=== PATIENT | male | born 1970 | race Caucasian/White ===

== ENCOUNTER 2020-09-16 14:49 | Emergency (ER) | payer OTHER, SELFPAY ==
--- NOTE | 2020-09-16 | ECG_ITS ---
Test Reason : CP Blood Pressure : / mmHG Vent. Rate : 084 BPM Atrial Rate : 084 BPM P-R Int : 150 ms QRS Dur : 084 ms QT Int : 326 ms P-R-T Axes : 071 060 059 degrees QTc Int : 385 ms Normal sinus rhythm Normal ECG When compared with ECG of 12-MAY-2002 00:25, No significant change was found Referred By: Tasia Martinez Electronically Signed By:Willis Nguyen
--- NOTE | 2020-09-16 15:05 | XR_ITS ---
EXAMINATION: XR CHEST CLINICAL INFORMATION: Chest pain COMPARISON: None TECHNIQUE: Frontal view of the chest was obtained. FINDINGS: Multiple cardiac leads and wires overlie the chest. The cardiomediastinal silhouette is within normal limits for technique. The lungs are symmetrically well expanded. The lungs are clear. No evidence of pleural effusions or pneumothorax. XR/XR chest 1V IMPRESSION: No acute pulmonary process.
[2020-09-16 15:17] VITALS: BP 138/90; PULSE 85; RESP 12; TEMP 36.5; O2SAT 96; BMI 31.6
[2020-09-16 15:22] LABS: MANUAL DIFF FLAG NO
[2020-09-16 15:23] LABS: Basophils Absolute Auto 0.1 X10*3/uL (0.0-0.2); Basophils Percent Auto 0.5 % (0-2); Eosinophils Absolute Auto 0.3 X10*3/uL (0.0-0.4); Eosinophils Percent Auto 2.3 % (0-4); Hematocrit 44.9 % (42-52); Hemoglobin 15.1 g/dl (14.0-18.0); Imm Gran Pct Auto 0.9 % (0.0-0.4); Lymphocytes Absolute Auto 1.9 X10*3/uL (1.2-4.9); Lymphocytes Percent Auto 16.7 % (20-40); Mean Corpuscular HGB Conc 33.6 g/dl (31.0-36.0); Mean Corpuscular Hemoglobin 33.4 pg (27.0-33.0); Mean Corpuscular Volume 99.3 fL (80-98); Mean Platelet Volume 10.1 fL (9.4-12.4); Monocytes Percent Auto 9.1 % (2-11); Neutrophils Absolute Auto 7.9 X10*3/uL (2.0-8.3); Neutrophils Percent Auto 70.5 % (45-73); Platelet Count 271 X10*3/uL (160-400); Red Blood Count 4.52 X10*6/uL (4.60-5.80); Red Cell Distribution Width 11.5 % (11.0-16.0); White Blood Count 11.3 X10*3/uL (4.8-10.8)
[2020-09-16] MEDS: 0.9 % Sodium Chloride 1,000 ML 999 ML IVCONT (15:23)
[2020-09-16 15:33] LABS: D Dimer < 200 NG/ML
[2020-09-16 15:36] LABS: COVID-19 Test Negative (Negative)
[2020-09-16 15:51] LABS: Troponin-I High Sensitivity < 3.5 ng/L (<3.5-35.0)
[2020-09-16 15:52] LABS: Alanine Aminotransferase 25 U/L (0-40); Albumin Level 4.5 g/dL (3.5-5.0); Alkaline Phosphatase 84 U/L (39-117); Anion Gap 16 (12-20); Aspartate Amino Transferase 32 U/L (5-37); Bilirubin Direct 0.2 mg/dL (0.0-0.5); Bilirubin Total 0.5 mg/dL (0.0-1.0); Blood Urea Nitrogen 13 mg/dL (9-16); Calcium 9.1 mg/dL (8.4-10.2); Carbon Dioxide 23 mmol/L (22-29); Chloride 106 mmol/L (96-108); Creatinine Clr Calc Pharmacy 144.3; Estimated Glomerular Filt Rate > 60; Glucose Random 109 mg/dL (60-115); Lipase 38 U/L (8-78); Potassium 4.2 mmol/L (3.3-5.1); Sodium 141 mmol/L (135-145)
[2020-09-16 16:23] VITALS: BP 128/78; PULSE 90; RESP 22; TEMP 37.1; O2SAT 95
--- NOTE | 2020-09-16 16:39 | ED_ITS ---
HPI - Chest Pain General Chief Complaint: Chest Pain Stated Complaint: chest pain Time Seen by Provider: 09/16/20 14:58 Source: patient Mode of arrival: ambulatory Limitations: no limitations History of Present Illness HPI narrative: 50-year-old male otherwise healthy came in with right-sided chest pain, pain started 8 hours ago when he woke up from sleep, patient is localized to the right side of the chest, no radiation, no other associated symptoms in particular no shortness of breath, no nausea, no vomiting. Pain has been constant since this morning, moderate severity (4/10). Nothing makes the pain worse, nothing makes the pain better. No trauma to the chest. Patient had similar chest pain in the past when he was diagnosed with pericarditis. Related Data Allergies Allergy/AdvReac Type Severity Reaction Status Date / Time No Known Allergies Allergy Verified 09/16/20 15:05 Review of Systems Review of Systems: All other systems are reviewed and are negative Constitutional: Reports as per HPI and Reports no additional constitutional complaints Eyes: Reports as per HPI and Reports no additional eye complaints Reports system reviewed and no additional complaints, except as documented Cardiovascular: Reports as per HPI and Reports no additional cardiovascular complaints Respiratory: Reports as per HPI and Reports no additional respiratory complaints Gastrointestinal: Reports as per HPI and Reports no additional gastrointestinal complaints Genitourinary: Reports no additional female genitourinary complaints Musculoskeletal: Reports no additional musculoskeletal complaints Skin/Breast: Reports system reviewed and no additional complaints, except as docu Psychiatric: Reports no additional psychiatric complaints Endocrine: Reports no additional endocrine complaints Hematologic/Lymphatic: Reports no additional hematologic/lymphatic complaints Allergic/Immunologic: Reports no additional allergic/immunologic complaints Reports system reviewed and no additional complaints, except as documented and Reports Abnormal speech present [facility] Social History Social History Advance Directives: No Advance Directives Information Provided: Yes Physical Exam Vital Signs: Vital Signs: Last Vital Signs Temp 98.7 F 09/16/20 16:23 Pulse 90 09/16/20 16:23 Resp 22 H 09/16/20 16:23 BP 128/78 09/16/20 16:23 Pulse Ox 95 09/16/20 16:23 Body Mass Index 31.6 Vital signs have been reviewed as normal and appeared to be correct. Blood pressure normal. Heart rate normal. Respiration rate normal. Temperature normal. Oxygen saturation normal. Appearance: Alert. Oriented X3. No acute distress. Head: Normal external exam. Normocephalic. Atraumatic. No Watson signs noted. No raccoon eyes noted Eyes: PERRLA. EOMI. Conjunctiva and sclera normal. Eyelids normal. ENT: EAC normal. TM's Normal. Pharynx normal. Uvula midline. Moist mucous membranes. No trismus noted. No drooling noted. No muffled voice noted. Neck: Normal inspection. Neck supple. FROM. No adenopathy. Thyroid Normal. No meningeal signs. No neck mass noted. CVS: Normal heart rate and rhythm. Heart sound normal. No murmurs noted. Pulses normal throughout. Respiratory: No respiratory distress. Painless inspiration. Breath sounds normal. No wheezes/rales/rhonchi noted. Chest nontender. No accessory muscle usage noted or decreased air movement noted. Abdomen: Soft and nontender. Bowel sounds normal in all 4 quadrants. No distention noted. No organomegaly noted. No visible injury noted. Back: No CVA tenderness. Full range of motion noted. Skin: Skin warm and dry. Normal skin color. Normal skin turgor. No rashes/lesions/lacerations noted. Extremities: No lower extremity edema. Extremities exhibit normal range of motion. Extremities nontender. Neuro: Oriented X 3. No motor deficit. No sensory deficit. Reflexes normal. Course Course Course Narrative: Assessment and plan. 50-year-old male otherwise healthy presented with 8 hours of constant right- sided chest pain, physical exam, labs, EKG is inconsistent with cardiopulmonary origin of the chest pain, EKG is not suggestive for pericarditis. Slight leukocytosis with no clear underlying etiology. Patient's HEART score is 1. As discussed with the patient who appear hemodynamically stable to discharge ho me take NSAIDs every 6 hours if needed for pain. MDM - Chest Pain Lab Data Attestation: I reviewed the patient's lab results. Result diagrams: 09/16/20 15:14 09/16/20 15:14 Labs: Lab Results 09/16/20 09/16/20 09/16/20 Range/Units 15:14 15:14 15:14 WBC 11.3 H (4.8-10.8) X10*3/uL RBC 4.52 L (4.60-5.80) X10*6/uL Hgb 15.1 (14.0-18.0) g/dl Hct 44.9 (42-52) % MCV 99.3 H (80-98) fL MCH 33.4 H (27.0-33.0) pg MCHC 33.6 (31.0-36.0) g/dl RDW 11.5 (11.0-16.0) % Plt Count 271 (160-400) X10*3/uL MPV 10.1 (9.4-12.4) fL Immature Gran % (Auto) 0.9 H (0.0-0.4) % Neut % (Auto) 70.5 (45-73) % Lymph % (Auto) 16.7 L (20-40) % Young % (Auto) 9.1 (2-11) % Eos % (Auto) 2.3 (0-4) % Baso % (Auto) 0.5 (0-2) % Lymph # (Auto) 1.9 (1.2-4.9) X10*3/uL Young # (Auto) 1.0 (0.1-1.2) X10*3/uL Eos # (Auto) 0.3 (0.0-0.4) X10*3/uL Baso # (Auto) 0.1 (0.0-0.2) X10*3/uL Abs Immat Gran (auto) 0.10 H (0.00-0.03) X10*3/uL Absolute Neuts (auto) 7.9 (2.0-8.3) X10*3/uL Absolute Nucleated RBC 0.000 (0.0-0.012) X10*3/uL Nucleated RBC % (auto) 0.0 (0.0-0.2) /100WBC D-Dimer < 200 NG/ML Sodium 141 (135-145) mmol/L Potassium 4.2 (3.3-5.1) mmol/L Chloride 106 (96-108) mmol/L Carbon Dioxide 23 (22-29) mmol/L Anion Gap 16 (12-20) BUN 13 (9-16) mg/dL Creatinine 0.81 (0.5-1.4) mg/dL Estim Creat Clear Calc 144.3 Estimated GFR > 60 Random Glucose 109 (60-115) mg/dL Calcium 9.1 (8.4-10.2) mg/dL Total Bilirubin 0.5 (0.0-1.0) mg/dL Direct Bilirubin 0.2 (0.0-0.5) mg/dL AST 32 (5-37) U/L ALT 25 (0-40) U/L Alkaline Phosphatase 84 (39-117) U/L Troponin I High Sens (<3.5-35.0) ng/L Total Protein 7.0 (6.5-8.0) g/dL Albumin 4.5 (3.5-5.0) g/dL Lipase 38 (8-78) U/L COVID-19 (JAKOB) (Negative) COVID-19 Clin Com 09/16/20 09/16/20 Range/Units 15:14 15:14 WBC (4.8-10.8) X10*3/uL RBC (4.60-5.80) X10*6/uL Hgb (14.0-18.0) g/dl Hct (42-52) % MCV (80-98) fL MCH (27.0-33.0) pg MCHC (31.0-36.0) g/dl RDW (11.0-16.0) % Plt Count (160-400) X10*3/uL MPV (9.4-12.4) fL Immature Gran % (Auto) (0.0-0.4) % Neut % (Auto) (45-73) % Lymph % (Auto) (20-40) % Young % (Auto) (2-11) % Eos % (Auto) (0-4) % Baso % (Auto) (0-2) % Lymph # (Auto) (1.2-4.9) X10*3/uL Young # (Auto) (0.1-1.2) X10*3/uL Eos # (Auto) (0.0-0.4) X10*3/uL Baso # (Auto) (0.0-0.2) X10*3/uL Abs Immat Gran (auto) (0.00-0.03) X10*3/uL Absolute Neuts (auto) (2.0-8.3) X10*3/uL Absolute Nucleated RBC (0.0-0.012) X10*3/uL Nucleated RBC % (auto) (0.0-0.2) /100WBC D-Dimer NG/ML Sodium (135-145) mmol/L Potassium (3.3-5.1) mmol/L Chloride (96-108) mmol/L Carbon Dioxide (22-29) mmol/L Anion Gap (12-20) BUN (9-16) mg/dL Creatinine (0.5-1.4) mg/dL Estim Creat Clear Calc Estimated GFR Random Glucose (60-115) mg/dL Calcium (8.4-10.2) mg/dL Total Bilirubin (0.0-1.0) mg/dL Direct Bilirubin (0.0-0.5) mg/dL AST (5-37) U/L ALT (0-40) U/L Alkaline Phosphatase (39-117) U/L Troponin I High Sens < 3.5 (<3.5-35.0) ng/L Total Protein (6.5-8.0) g/dL Albumin (3.5-5.0) g/dL Lipase (8-78) U/L COVID-19 (JAKOB) Negative (Negative) COVID-19 Clin Com See Note Imaging Data Chest x-ray: Radiologist's impression: No acute pathology. ECG Data ECG #1: Interpretation: Normal sinus rhythm at 84 beats per minute, normal axis deviation, normal intervals, no ST-T changes.
== END 2020-09-16 17:25 | disposition home or self-care (01) ==
PROVIDERS: Emergency Provider Emergency Medicine; PCP Internal Medicine
DX: R07.9 Chest pain, unspecified (principal); Z20.822 Contact with and (suspected) exposure to COVID-19
CPT/HCPCS: 36415; 71045; 80048; 80076; 83690; 84484; 85025; 85379; 87635; 93005; 96360; 99283; 99284

== ENCOUNTER 2020-11-04 18:47 | Emergency (ER) | payer OTHER, SELFPAY ==
[2020-11-04 19:19] VITALS: BP 131/84; PULSE 112; PULSE 116; RESP 20; TEMP 37.1; O2SAT 94; O2SAT 98; BMI 31.6
--- NOTE | 2020-11-04 19:55 | PC.NURSE ---
pt brought to the bathroom to change of address clerk with security and with pct. pt is cooperative, steady gait. urine being collected at this time as well.
[2020-11-04 20:35] VITALS: BP 115/68; PULSE 104; RESP 20; TEMP 36.8; O2SAT 94
--- NOTE | 2020-11-04 21:26 | MHC.RECOVSUP ---
Recovery support o Current location: [address] o Identified substance use concern: Psychiatric Alcohol <del>-</del> <del>Overdose</del> <del>-</del> <del>Withdrawal</del> <del>-</del> <del>Seeking</del> <del>ATS</del> <del>(detox)</del> - Support ? Intervention: <del>o</del> <del>ATS</del> <del>bed</del> <del>search</del> <del>started/completed/in</del> <del>process</del> <del>o</del> <del>MAT</del> <del>started</del> <del>or</del> <del>to</del> <del>be</del> <del>started</del> o Community resources provided o Harm reduction discussion ? Plan: <del>o</del> <del>Referral</del> <del>to</del> <del>CCC</del> <del>o</del> <del>Bed</del> <del>search</del> <del>in</del> <del>progress</del> <del>to</del> <del>o</del> <del>Follow</del> <del>up</del> <del>tomorrow</del> o Patient awaiting crisis evaluation o Patient to follow up with [facility] after discharge ? Additional information: I was able to engage with pt and pt stated that he is not on MAT and does not have a hx of substance use. pt states that there was a misunderstanding and that he has no intention on hurting himself. I briefly spoke to him about recovery and also left him with some resources on Vivitrol, CCC, AA, and Recovery Coaching.
[2020-11-04 21:32] LABS: Ethanol 83 mg/dL
[2020-11-04 21:37] LABS: Amphetamine Screen Urine Not Detected (Not Detect); Barbiturates, Urine Not Detected (Not Detect); Benzodiazepines Screen Urine Not Detected (Not Detect); Cannabinoid Screen Urine Not Detected (Not Detect); Cocaine Screen Urine Not Detected (Not Detect); Opiate Screen Urine Not Detected (Not Detect); Phencyclidine Screen Urine Not Detected (Not Detect)
[2020-11-04 22:00] VITALS: BP 123/77; PULSE 102; RESP 18; TEMP 36.8; O2SAT 93
--- NOTE | 2020-11-04 22:19 | PC.NURSE ---
PT BEING SEEN BY THE CARE TEAM AT THIS TIME. PT IS CALM AND COOPERATIVE. SITTER AT BEDSIDE.
--- NOTE | 2020-11-04 22:21 | MHC.CARE ---
Pt arrived to ED via ambulance secondary to making a suicidal statement to a romantic partner on the phone while intoxicated. Pt's BAL was 81 shortly after arrival, and ED provider requested that CARE team speak with pt when able. Pt adamantly insisted that he had been making a joke about how he could take a bunch of pills however that he would never do such a thing, and that the woman he was on the phone with was someone that he had been out with two times and was merely acquainted with. Pt reported that he has a gigantic amount of stress in his life, including financial/IRS related issues, working several jobs, and having been twice. Pt reported that he has a son that stays with him every other weekend. Pt has a therapist and psychiatrist that he works with regularly and finds that they are helpful. Pt denied experiencing any thoughts of or suicide, and denied history of such. Pt denied history of self harm and aggression toward others. This hand sign writer spoke with ED provider re: recommendation that pt return home with plan to follow up with his outpatient behavioral health providers. Pt reported that he has no way of getting home from the hospital. This hand sign writer will attempt to order a Lyft for transport home following discharge.
--- NOTE | 2020-11-04 22:29 | ED_ITS ---
HPI - Psych General Chief Complaint: Psychiatric Symptoms Stated Complaint: crisis si Time Seen by Provider: 11/04/20 22:29 Source: patient Mode of arrival: ambulatory Limitations: no limitations History of Present Illness HPI Narrative: Drinking alcohol and feeling stressed due to divorce him bills and was talking to a new female friend on the phone who he has been intermittent with and stated while he was drinking that in a joking manner he stated would like to take some pills to get over his problems. States he has only been intermittent with his female twice and she does not really know him and this is his usual joking manner. States this was a total misunderstanding over the phone and there is no thoughts of SI. Does admit to drinking alcohol and states does not regularly drink and had several red bull with vodka. Over the course of couple hours see our prior to arrival. MD complaint: alcohol abuse Onset (ago): hour(s) History of same: No Relieving factors: none Exacerbating factors: none Treatments prior to arrival: none Related Data Allergies Allergy/AdvReac Type Severity Reaction Status Date / Time No Known Allergies Allergy Verified 09/16/20 15:05 Review of Systems Review of Systems: Constitutional: No Weight loss, No Fever, No Chills, No Night Sweats, No Fatigue, No Malaise ENT/Mouth: No Hearing loss, No Ear Pain, No Nasal Congestion, No Sinus Pain, No Hoarseness, No sore throat, No Rhinorrhea, No Swallowing Difficulty Eyes: No Eye Pain, No Swelling, No Redness, No Foreign Body, No Discharge, No Vision Changes Cardiovascular: No Chest Pain, No SOB, No Dyspnea on Exertion, No Orthopnea, No Edema, No Palpitations Respiratory: No Cough, No Sputum, No Wheezing, No Dyspnea Gastrointestinal: No Nausea, No Vomiting, No Diarrhea, No Constipation, No abdominal Pain, No Hematochezia, No Melena Genitourinary: No Dysuria, No Urinary Frequency, No Hematuria, No Urinary Incontinence, No Urgency, No Flank Pain, No Urinary Flow Changes, No Hesitancy Musculoskeletal: No joint pain, No Myalgias, No Joint Swelling Skin: No Skin Lesions, No rash Neuro: No Weakness, No Numbness, No Paresthesias, No Loss of Consciousness, No Dizziness, No Headache Psych: No Anxiety/Panic, No Depression, No SI/HI/AH/VH Heme/Lymph: No Bruising, No Bleeding,No Lymphadenopathy Endocrine: No Polyuria, No Polydipsia, No Temperature Intolerance Yes all other systems are reviewed and are negative [facility] Social History Social History Advance Directives: No Physical Exam Vital Signs: Vital Signs: Last Vital Signs Temp 98.2 F 11/04/20 20:35 Pulse 104 H 11/04/20 20:35 Resp 20 11/04/20 20:35 BP 115/68 11/04/20 20:35 Pulse Ox 94 11/04/20 20:35 Body Mass Index 31.6 Reviewed Const: General: cooperative, healthy appearing and intoxicated appearing; No acute distress Nutritional Appearance: average body habitus Orientation/consciousness: patient oriented x3 HENMT: Head: Yes normal to inspection Ears: hearing grossly normal bilaterally Eyes: General: appearance normal, both eyes and all related structures Visual Niño: normal visual niño by confrontation Neck: Neck: Yes normal visual inspection, No positive Brudzinski's sign, No positive Kernig's sign and No tender Thyroid: Thyroid normal Chest: Chest palpation & inspection: normal inspection of the chest Resp: Effort & Inspection: normal respiratory effort Cardio: Jugular venous distension: no JVD Rhythm: regular rhythm Heart sounds: S1 normal heart sound present and S2 normal heart sound present GI: Inspection: Yes normal to inspection Palpation (GI): Soft to palpation Percussion: Yes normal to percussion Auscultation: normal bowel sounds : General: Yes no CVA tenderness Back/Spine/Pelvis: Back: no CVA tenderness Skin: General skin exam: no rashes or lesions noted Neuro: General: patient oriented x3 Extrem: General: Yes normal to inspection Psych: Appearance: grossly normal Course Reevaluation(s) Reevaluation #1: Offers no medical complaints Will take U tox/ETOH and obtain crisis evaluation. Reevaluation #2: Has been resting comfortably ambulatory steady gait clinically sober. Subsequently consulted Care Team. Consultations Consultation #1: Evaluate by care team and cleared for discharge. MDM - Psych Lab Data Labs: Lab Results 11/04/20 11/04/20 Range/Units 20:08 21:09 Urine Opiates Screen Not Detected (Not Detect) Ur Barbiturates Screen Not Detected (Not Detect) Ur Phencyclidine Scrn Not Detected (Not Detect) Ur Amphetamines Screen Not Detected (Not Detect) U Benzodiazepines Scrn Not Detected (Not Detect) Urine Cocaine Screen Not Detected (Not Detect) U Marijuana (THC) Screen Not Detected (Not Detect) Ethyl Alcohol 83 mg/dL Discharge Plan Discharge Clinical Impression: Alcohol intoxication Patient Disposition: Home, Self-Care Instructions: Alcohol Intoxication (ED) Additional Instructions: Please stop drinking alcohol This includes seriously cause harm to health and even Follow up with her primary care doctor Seek detox Return if any concerns or worsening symptoms Follow-up with suraj Schilling Thank you Referrals: Criselda High MD [Primary Care Provider] - 3 days
== END 2020-11-04 22:49 | disposition home or self-care (01) ==
PROVIDERS: Nurse Practitioner Primary Care; Emergency Provider Internal Medicine; PCP Internal Medicine
DX: F10.120 Alcohol abuse with intoxication, uncomplicated (principal); Y90.4 Blood alcohol level of 80-99 mg/100 ml
CPT/HCPCS: 36415; 80307; 80320; 99284

== ENCOUNTER 2024-06-11 08:31 | Emergency (ER) | payer OTHER, SELFPAY ==
--- NOTE | ~2024-06-11 | CT_ITS ---
EXAMINATION: CT ABDOMEN AND PELVIS WITH CONTRAST CLINICAL INFORMATION: Rectal bleeding. Right upper quadrant and left upper quadrant pain and tenderness. COMPARISON: None available. TECHNIQUE: Multidetector volumetric images were obtained from the superior aspect of the liver through the pubic symphysis following administration 85 mL of Omnipaque 350 intravenous contrast. Sagittal and coronal reformatted images were obtained on the technologist's workstation. Oral contrast: No This CT examination was performed using dose optimization techniques as appropriate, variously including the following: *Automated exposure control *Adjustment of mA and/or kV according to patient size (this includes techniques or standardized protocols for targeted exams where dose is matched to indication/reason for exam; i.e. extremities or head) *Use of iterative reconstruction technique DLP: 745 mGy-cm FINDINGS: LUNG BASES: The visualized lung bases are unremarkable. LIVER, GALLBLADDER, AND BILIARY TREE: The liver is normal in size, shape, and attenuation. No focal hepatic lesion or biliary ductal dilatation is present. The gallbladder is unremarkable with no evidence of radiopaque gallstones, gallbladder wall thickening, or obvious pericholecystic inflammatory changes. PANCREAS: Unremarkable. SPLEEN: Unremarkable. ADRENAL GLANDS: Unremarkable. KIDNEYS AND URETERS: The kidneys are normal in size, shape, and attenuation. No hydronephrosis, hydroureter, or calculi seen. No perinephric stranding. BLADDER: Unremarkable. GASTROINTESTINAL TRACT: No small or large bowel obstruction. No bowel wall thickening or inflammatory change. Unremarkable appendix. PERITONEAL CAVITY: No intra-abdominal free air or free fluid. ABDOMINAL WALL: Small, fat-containing bilateral inguinal hernias. LYMPH NODES: No significant lymphadenopathy. VASCULAR: No abdominal aortic dilatation or dissection. Scattered atherosclerotic calcifications. PELVIC VISCERA: The prostate and seminal vesicles are unremarkable. OSSEOUS STRUCTURES: Unremarkable. CT/CT abdomen pelvis w IV con IMPRESSION: 1. No small or large bowel obstruction. No bowel wall thickening or inflammatory change. Unremarkable appendix. 2. No intra-abdominal mass, lymphadenopathy, or ascites. 3. No hydronephrosis or nephrolithiasis. Fleischner guidelines were followed. Electronically signed by: Nura Santacruz MD 06/11/2024 11:02 AM EDT
[2024-06-11 08:37] VITALS: BP 140/79; PULSE 90; RESP 18; TEMP 36.9; O2SAT 98; BMI 33.0
[2024-06-11 09:01] LABS: Appearance Urine Clear; Color Urine Yellow; Glucose Urine UA Negative (Negative); Leukocyte Esterase Urine Negative (Negative); Nitrite Urine Negative (Negative); PH 6.5 (5.0-9.0); Urine Blood Negative (Negative); Urine Ketones Negative (Negative); Urine Protein Negative (Neg-Trace)
--- NOTE | 2024-06-11 09:38 | ED.ABDPAIN ---
HPI - Abdominal Pain General Chief Complaint: Abdominal Pain Stated Complaint: abd pain blood in stools Time Seen by Provider: 06/11/24 09:04 Source: patient Mode of arrival: ambulatory Limitations: no limitations History of Present Illness ED Provider: Dr. Scott Foley HPI narrative: 54-year-old male with a history of alcohol use disorder, hyperlipidemia, Marrero's esophagitis, esophageal varices, bipolar disorder who presents emergency department for evaluation of left upper quadrant pain and bright red blood per rectum. Patient states that 2 days prior he had a sudden onset of left upper quadrant pain that lasted approximately 2 hours. He states initially the pain was sharp and then became dull and then resolved. He states that 2 days prior he noted balls of stool which had blood clots in them. States that yesterday he did have blood per rectum after bowel movement. Patient states that he has noted blood in his stool every 6 months but has never seen blood clots or had left upper quadrant pain in the past. The patient's prefitter is Dr. Bo and the patient did have a colonoscopy 3 years ago which she believes was normal and recent endoscopy which was consistent with Marrero's esophagitis and varices. Patient went to his PCP's office and was advised to go to the emergency department for evaluation. Related Data Allergies Allergy/AdvReac Type Severity Reaction Status Date / Time No Known Allergies Allergy Verified 06/11/24 08:40 Review of Systems Review of Systems Yes all other systems are reviewed and are negative [facility] Past Medical History [facility] Narrative: Social history: The patient smokes 1 pack of cigarettes per day times 40 years. He drinks 5 vodka drinks per day. He denies drug use. Social History Social History Alcohol intake: current Alcohol intake frequency: 3 or more drinks per day Alcohol type: hard liquor Smoked in Last 30 Days: Yes Advance Directives: No Advance Directives Information Provided: Yes Physical Exam ED Vital Signs: Vital Signs - 24 hr 06/11/24 08:37 06/11/24 11:12 Temperature 98.5 F 98.4 F Pulse Rate 90 74 Respiratory Rate 18 16 Blood Pressure 140/79 H 135/92 H Pulse Oximetry 98 Oxygen Delivery Method Room Air Room Air BMI result Body Mass Index 33.0 Vital signs were normal Exam: General: Awake, alert in no distress Head: Normocephalic, atraumatic EENT: PERRL, Lids normal, sclera normal, conjunctiva normal, nose normal , ears normal, throat without erythema or exudates Neck: Supple, no adenopathy Lung: breath sounds symmetric, no wheezing, rales or rhonchi Chest: symmetric movement, nontender Heart: regular rate and rhythm, normal S1, S2 no murmurs or rubs Abdomen: soft, moderate right lower quadrant tenderness, mild diffuse tenderness, nondistended, normal bowel sounds Rectal: No external hemorrhoids noted, rectal tone was normal, prostate does not appear to be in large is nontender. Stool was brown and trace Hemoccult positive. Back: no vertebral tenderness, no CVAT Extremities: no deformities, moves all extremities symmetrically Neuro: Awake, alert, oriented, normal speech, cranial nerves intact, moves all extremities symmetrically Psych: Pleasant, cooperative Medical Decision Making Medical Decision Making MDM Narrative: 54-year-old male with a history of hypertension, Marrero's esophagitis, varices, bipolar disorder, alcohol use disorder who presents emergency department for evaluation of brief episode of left upper quadrant pain that lasted several hours 2 days prior followed by bright red blood per rectum and diffuse abdominal pain. Patient continues to drink 5 alcoholic drinks per day and does smoke 1 pack of cigarettes per day. Vital signs were normal. Exam did reveal diffuse abdominal tenderness with increased tenderness in the right lower quadrant. Differential diagnosis: ?Includes but is not limited to internal hemorrhoid bleeding, splenic infarct, ischemic bowel, colon malignancy, anemia, electrolyte abnormalities Course: Lab Data 06/11/24 09:40 06/11/24 09:40 Labs: Lab Results 06/11/24 06/11/24 Range/Units 08:55 09:40 WBC 7.7 (4.8-10.8) X10*3/uL RBC 4.83 (4.60-5.80) X10*6/uL Hgb 15.5 (14.0-18.0) g/dl Hct 45.8 (42.0-52.0) % MCV 94.8 (80.0-98.0) fL MCH 32.1 (27.0-33.0) pg MCHC 33.8 (31.0-36.0) g/dl RDW 11.5 (11.0-16.0) % Plt Count 253 (160-400) X10*3/uL MPV 9.6 (9.4-12.4) fL Immature Gran % (Auto) 0.9 H (0.0-0.4) % Neut % (Auto) 57.3 (45-73) % Lymph % (Auto) 26.5 (20-40) % [place] % (Auto) 8.8 (2-11) % Eos % (Auto) 5.3 H (0-4) % Baso % (Auto) 1.2 (0-2) % Lymph # (Auto) 2.0 (1.2-4.9) X10*3/uL [place] # (Auto) 0.7 (0.1-1.2) X10*3/uL Eos # (Auto) 0.4 (0.0-0.4) X10*3/uL Baso # (Auto) 0.1 (0.0-0.2) X10*3/uL Abs Immat Gran (auto) 0.07 H (0.00-0.03) X10*3/uL Absolute Neuts (auto) 4.4 (2.0-8.3) x10*3/uL Absolute Nucleated RBC 0.000 (0.0-0.012) X10*3/uL Nucleated RBC % (auto) 0.0 (0.0-0.2) /100WBC APTT 32.6 (26.0-36.8) SEC Sodium 141 (135-145) mmol/L Potassium 4.4 (3.3-5.1) mmol/L Chloride 106 (96-108) mmol/L Carbon Dioxide 27 (22-29) mmol/L Anion Gap 12 (12-20) BUN 13 (9-16) mg/dL Creatinine 0.93 (0.5-1.4) mg/dL Estim Creat Clear Calc 119.1 Estimated GFR > 60 Random Glucose 100 (60-115) mg/dL Calcium 9.8 D (8.4-10.2) mg/dL Total Bilirubin 0.6 (0.0-1.0) mg/dL AST 31 (5-37) U/L ALT 37 (0-40) U/L Alkaline Phosphatase 73 (39-117) U/L Total Protein 7.0 (6.5-8.0) g/dL Albumin 4.3 (3.5-5.0) g/dL Lipase 29 (8-78) U/L Urine Color Yellow Urine Appearance Clear Urine pH 6.5 (5.0-9.0) Ur Specific Dickens 1.020 (1.005-1.025) Urine Protein Negative (Neg-Trace) mg/dL Urine Glucose (UA) Negative (Negative) mg/dL Urine Ketones Negative (Negative) mg/dL Urine Blood Negative (Negative) Urine Nitrite Negative (Negative) Ur Leukocyte Esterase Negative (Negative) Stool Occult Blood NEGATIVE (NEGATIVE) Radiology Impression Discussion of test interpretation with radiology: I have reviewed the radiologist's reading. Radiologist Impression: CT abdomen pelvis w IV con IMPRESSION: 1. No small or large bowel obstruction. No bowel wall thickening or inflammatory change. Unremarkable appendix. 2. No intra-abdominal mass, lymphadenopathy, or ascites. 3. No hydronephrosis or nephrolithiasis. Fleischner guidelines were followed. Electronically signed by: Nura Santacruz MD 06/11/2024 11:02 AM EDT Dictated By: Nura Santacruz MD Medications Administered Discontinued Medications Generic Name Dose Route Start Last Admin Trade Name Freq PRN Reason Stop Dose Admin Iohexol 85 ml 06/11/24 10:07 06/11/24 10:10 Iohexol 350 Mg/Ml 75 Ml Infus..Btl IV 06/11/24 10:08 85 ml ONCE ONE Administration Discharge Plan Discharge Clinical Impression: Bright red rectal bleeding Patient Disposition: Home, Self-Care Instructions: Rectal Bleeding (ED) Additional Instructions: You had a complete blood count (CBC), comprehensive metabolic panel (CMP), PTT laboratory evaluation. All of these tests were normal which is reassuring. The CT scan of your abdomen pelvis did not reveal any clear cause for your bleeding. I want you to call your prefitter next week and discuss your bleeding with your doctor, you may need a colonoscopy as an outpatient to further evaluate this bleeding. Despite having normal liver tests, your damaging your liver from your alcohol use. If you continue to drink alcohol eventually your liver will fell in you will developed cirrhosis of the liver. The CT impression is below. You can try this with your prefitter. Follow-up with your doctor in 2 days. Please return to the emergency department if your symptoms get worse or if you develop any symptoms that are concerning to you. CT abdomen pelvis w IV con IMPRESSION: 1. No small or large bowel obstruction. No bowel wall thickening or inflammatory change. Unremarkable appendix. 2. No intra-abdominal mass, lymphadenopathy, or ascites. 3. No hydronephrosis or nephrolithiasis. Fleischner guidelines were followed. Electronically signed by: Nura Santacruz MD 06/11/2024 11:02 AM EDT Dictated By: Nura Santacruz MD Print Language: Jordanian
[2024-06-11 09:45] LABS: MANUAL DIFF FLAG NO
[2024-06-11 09:46] LABS: OBS Int Ctl Valid YES; OBS1 NEGATIVE (NEGATIVE)
[2024-06-11 09:47] LABS: Basophils Absolute Auto 0.1 X10*3/uL (0.0-0.2); Basophils Percent Auto 1.2 % (0-2); Eosinophils Absolute Auto 0.4 X10*3/uL (0.0-0.4); Eosinophils Percent Auto 5.3 % (0-4); Hematocrit 45.8 % (42.0-52.0); Hemoglobin 15.5 g/dl (14.0-18.0); Imm Gran Abs Auto 0.07 X10*3/uL (0.00-0.03); Imm Gran Pct Auto 0.9 % (0.0-0.4); Lymphocytes Percent Auto 26.5 % (20-40); Mean Corpuscular HGB Conc 33.8 g/dl (31.0-36.0); Mean Corpuscular Hemoglobin 32.1 pg (27.0-33.0); Mean Corpuscular Volume 94.8 fL (80.0-98.0); Mean Platelet Volume 9.6 fL (9.4-12.4); Monocytes Absolute Auto 0.7 X10*3/uL (0.1-1.2); Monocytes Percent Auto 8.8 % (2-11); Neutrophils Absolute Auto 4.4 x10*3/uL (2.0-8.3); Neutrophils Percent Auto 57.3 % (45-73); Platelet Count 253 X10*3/uL (160-400); Red Blood Count 4.83 X10*6/uL (4.60-5.80); Red Cell Distribution Width 11.5 % (11.0-16.0); White Blood Count 7.7 X10*3/uL (4.8-10.8)
[2024-06-11 09:54] LABS: Partial Thromboplastin Time 32.6 SEC (26.0-36.8)
[2024-06-11 10:01] LABS: Alanine Aminotransferase 37 U/L (0-40); Albumin Level 4.3 g/dL (3.5-5.0); Alkaline Phosphatase 73 U/L (39-117); Anion Gap 12 (12-20); Aspartate Amino Transferase 31 U/L (5-37); Bilirubin Total 0.6 mg/dL (0.0-1.0); Blood Urea Nitrogen 13 mg/dL (9-16); Calcium 9.8 mg/dL (8.4-10.2); Carbon Dioxide 27 mmol/L (22-29); Chloride 106 mmol/L (96-108); Creatinine Clr Calc Pharmacy 119.1; Estimated Glomerular Filt Rate > 60; Glucose Random 100 mg/dL (60-115); Lipase 29 U/L (8-78); Potassium 4.4 mmol/L (3.3-5.1); Sodium 141 mmol/L (135-145)
[2024-06-11] MEDS: iohexoL 350 MG/ML 75 ML INFUS..BTL 85 ML IV (10:10)
[2024-06-11 11:12] VITALS: BP 135/92; PULSE 74; RESP 16; TEMP 36.9
[2024-06-11 13:44] VITALS: BP 130/90; PULSE 74; RESP 18; TEMP 36.8; O2SAT 97
== END 2024-06-11 13:45 | disposition home or self-care (01) ==
PROVIDERS: Emergency Provider Emergency Medicine Emergency Medical Services; PCP Internal Medicine
DX: K62.5 Hemorrhage of anus and rectum (principal); R10.2 Pelvic and perineal pain; Z79.899 Other long term (current) drug therapy
CPT/HCPCS: 36415; 74177; 80053; 81003; 82272; 83690; 85025; 85730; 99284; Q9967

== ENCOUNTER 2025-02-02 14:10 | Outpatient (AMB) | payer OTHER, SELFPAY ==
--- NOTE | 2025-02-02 14:22 | A.OFFVIS_ITS ---
Vital Signs 02/02/25 14:23 Height 6 ft Weight 253 lb BMI 34.3 BP 112/70 Blood Pressure Location Lt brachial Position Sitting Pulse 110 H Pulse Source Pulse Oximeter Pulse Oximetry (%) 93 Oxygen Delivery Method Room Air Intake Visit Reasons: Obstructive sleep apnea Intake Note: pt is here as a new patient for DANNA, DME is [facility], cpap is about 5 years old, and would like a replacement, he states he does use if every night. Gas Torch Solderer Required: No Allergies No Known Allergies Allergy (Verified 02/02/25 16:27) Medication List - Last Reconciled 02/02/25 by Michael Jose MD atorvastatin 20 mg PO QPM lamotrigine 500 mg PO QAM omeprazole 20 mg PO DAILY Do you need a note to return to daycare/school/sports/work: No HPI HPI Obstructive sleep apnea: Details: THIS 54 YEARS OLD GENTLEMAN WHO IS GROSSLY OBESE AND HAS HISTORY OF OBSTRUCTIVE SLEEP APNEA DIAGNOSED IN 2007 WITH POLYSOMNOGRAM STUDY AT [facility]. HE WAS PRESCRIBED CPAP WHICH HE HAS BEEN USING ALL THIS TIME, THE CURRENT CPAP MACHINE IS THE ABOUT 4 YEARS OLD. HE STATES THAT IT IS MAKING SOME NOISE , AND HE DOES NOT FEEL IT IS PROVIDING HIM ENOUGH SUPPORT. HE IS ASKING IF HE CAN GET A NEW CPAP MACHINE. ANYWAY HE STATES THAT HE DOES USE IT EVERY NIGHT AND SLEEPS AT LEAST 5-6 HOURS PER NIGHT. HE STILL HAS SOME DAYTIME SLEEPINESS, REMAINS RELATIVELY INACTIVE, AND HAS NOT BEEN ABLE TO LOSE WEIGHT. HE ALSO HAS SHORTNESS OF BREATH ON WALKING, DENIES ANY COUGH OR WHEEZING. DENIES ANY CHEST PAIN. HIS WEIGHT REMAINS GROSSLY ABNORMAL AND HE IS NOT ABLE TO LOSE MUCH WEIGHT. HISTORY OF SMOKING 1 PACK OF CIGARETTES A DAY ALMOST 30 YEARS. HAS INTERMITTENT COUGH BUT NO WHEEZING. HE GETS SHORT OF BREATH ON EXERTION SUCH CLIMBING 1 FLIGHT OF STAIRS OR WALKING OUTDOORS. [facility] Medical History COPD (chronic obstructive pulmonary disease) Smoker DANNA on CPAP Obesity (BMI 35.0-39.9 without comorbidity) Social History Alcohol intake: current Alcohol intake frequency: 3 or more drinks per day Alcohol type: hard liquor Patient Tobacco Use Status: Current everyday Tobacco user Cigarette Packs Per Day: 1 Cigarettes Per Day: 20 Review of Systems Const All systems reviewed & are unremarkable except as noted in HPI and below Eyes Reports no additional complaints ENT Reports nasal discharge and Reports nasal obstruction (INTERMITTENT) Card Denies chest pain, Denies syncope, Denies irregular heart rhythm and Denies leg edema Resp Reports as per HPI GI Reports no additional complaints Reports no additional complaints Musc Reports no additional complaints Skin/Breast Reports system reviewed and no additional complaints, except as documented Neuro Reports no additional complaints and Denies syncope Psych Reports no additional complaints Endo Reports no additional complaints Edis/Lymph Reports no additional complaints Aller/Immun Reports no additional complaints Physical Exam Vital Signs: Last Vital Signs Pulse 110 H 02/02/25 14:23 BP 112/70 02/02/25 14:23 Pulse Ox 93 02/02/25 14:23 Oxygen Delivery Method Room Air 02/02/25 14:23 BMI result Body Mass Index 34.3 Const General: healthy appearing (EXCEPT FOR BEING OVERWEIGHT), comfortable, no acute distress, alert and awake Orientation/consciousness: patient oriented x3 HEENT Head: Yes normal to inspection General nose exam: No nasal polyps present and No nasal discharge present Face and sinus: Yes sinuses nontender Mouth: oropharynx abnormals (STATUS POST TONSILLECTOMY, MALLAMPATI CLASS 3.) Throat: Yes posterior oropharynx normal Eyes General: appearance normal, both eyes and all related structures Neck Other: NECK CIRCUMFERENCE 18 IN Neck: Yes normal visual inspection, Yes no lymphadenopathy, Yes trachea midline and Yes no JVD Thyroid: Thyroid normal Chest Chest palpation & inspection: normal inspection of the chest, normal palpation of entire chest wall and no tenderness Resp Effort & Inspection: normal respiratory effort Auscultation: clear to auscultation bilaterally Cardio Palpation: normal PMI Rate: regular rate Rhythm: regular rhythm Heart sounds: no gallops and no murmurs Peripheral pulses: Peripheral pulses 2+ throughout GI Palpation (GI): Soft to palpation, Tenderness to palpation present (GI), No hepatosplenomegaly present and Palpable mass present Auscultation: normal bowel sounds Back/Spine/Pelvis Thoracic/Lumbar Spine: thoracic and lumbar spine normal to inspection Skin General skin exam: no rashes or lesions noted Neuro General: patient oriented x3 and no focal motor deficits Cranial nerves: Yes CN's II-XII intact bilaterally Extrem General: Yes normal to inspection, Yes no clubbing, cyanosis or edema and Yes no calf tenderness Psych Speech and movement: Normal speech and movement present Results Reviewed Results Reviewed: THE REPORT OF POLYSOMNOGRAM STUDY AT [facility] ON 08/01/2008 IS REVIEWED HE HAD OBSTRUCTIVE SLEEP APNEA CORRECTED BY USE OF CPAP. NASAL CPAP WITH PRESSURE OF 12 CM WAS RECOMMENDED Assessment & Plan Assessment & Plan (1) Obesity (BMI 35.0-39.9 without comorbidity): Comment: Current BMI 34.3 He does have a round face and neck circumference 18 inches Code(s): E66.9 - Obesity, unspecified Category: Medical Plan: Talked to him about need to lose weight and talked about diet and need to walk a few miles every day (2) DANNA on CPAP: Comment: History of established diagnosis of obstructive sleep apnea since 2007. Patient claims that has been using CPAP regularly. He has some issues with the current CPAP machine making some nice at night and it is about 4 years old. Code(s): G47.33 - Obstructive sleep apnea (adult) (pediatric) Category: Medical Plan: Advise that he should continue to use the current machine. He will be eligible to have a replacement CPAP equipment next year, in 2025 In the meantime continue to use regularly and order for supplies has been sent. (3) Smoker: Comment: He has history of smoking 1 pack of cigarettes a day for more than 30 years. Has mild to moderate intermittent cough related to smoking. Also gets short of breath on walking up stairs or walking outdoors. Code(s): F17.200 - Nicotine dependence, unspecified, uncomplicated Category: Social Hx Plan: Talked about smoking cessation, does not want to use any meds. Will try to reduce the number of cigarettes to half pack a day . After discussion with the patient and his agreement, he is being referred for annual lung screening program . (4) COPD (chronic obstructive pulmonary disease): Comment: Patient does have restrictive and obstructive lung disease as per clinical exam. Will get complete pulmonary function test Code(s): J44.9 - Chronic obstructive pulmonary disease, unspecified Category: Medical Plan: Pulmonary function test is ordered . Patient to be rechecked in 2 months Orders: Orders PFT pulmonary function test Today F17.200 - Nicotine dependence, unspecified, uncomplicated, J44.9 - Chronic obstructive pulmonary disease, unspecified Referrals Lung Cancer Screening Referral F17.200 - Nicotine dependence, unspecified, uncomplicated, J44.9 - Chronic obstructive pulmonary disease, unspecified Coding Level of Care Code New Pt Level 4 (35739) Diagnoses Obesity (BMI 35.0-39.9 without comorbidity) E66.9 DANNA on CPAP G47.33 Smoker F17.200 COPD (chronic obstructive pulmonary disease) J44.9
[2025-02-02 14:23] VITALS: BP 112/70; PULSE 110; O2SAT 93; BMI 34.3
--- OUTSIDE RECORDS SUMMARY | 2025-02-02 16:17 | XMS_ITS | Patient Health Record ---
Author Organization [facility] Address [address] [place] [address] Care Team Providers Care Sound Cutter Name Role Phone UNKNOWN, PROVIDER Primary Care Provider Brandan ACOSTA, Roro Eddy [phone] Medications Medication SIG (Take, Route, Frequency, Duration) Notes Start Date End Date Status lamoTRIgine 200 MG Tablet TAKE 2 AND A H GERMÁN TABLETS IN THE MORNING AND HALF A TABLET AT NIGHT; Duration: 30 Active Lexapro 10 MG Tablet TAKE 1 TABLT BY HAYES DAILY; Duration: 30 Active CPAP (DME) please increase pres sure to 14cm H20 and obtain data download 03/17/2017 Active Omeprazole 40 MG Capsule Delayed Release TAKE 1 CAPSULE EVERY DAY; Duration: 30 Active Viagra 100 MG Tablet 1/2 to 1 tab as nee ded Orally Once a day; Duration: 30 day(s) 04/01/2016 Active Immunizations Vaccine Route Administration Date Status Comme nts Pneumo (Private) Adult (Pneumovax 23) IM Intramuscular 03/27/2016 Administered Tdap Vaccine 7 Yrs/> Im IM Intramuscular 01/28/2013 Admini stered Social History Tobacco Use: Social History Observation Description Date Details (start date - stop date) Current Smoker NA - NA Social History Tobacco Use: Social Info Question Answer Notes Tobacco Use: Date tobacco status assessed 03/27/2016 Status: Current every day smoker Are you interested in quitting? No Patient counseled on the demetrius novak of smoking and urged to quit 03/27/2016 Additional Details Category Social Info Options Details Miscellaneous: Exercise: No exercise Caffeine: >5 cups per day Occupation: Owns an [employer] Diet: Eats healthier a t home, [employer] for lunch Alcohol: 2- drinks per ni ght. Lives with: , 1 year old son, 9 year old son (shared custody) Section Notes: 05/2015-smoking 1-1.5 PPD 05/2015-smoking 1-1.5 PPD 05/2015-smoking 1-1.5 PPD 05/2015-smoking 1-1.5 PPD Problems Problem Type SNOMED Code ICD Code Onset Dates Problem Status W/U Status Risk Notes Problem Bipolar disorder (96999718) Bipolar disorder (F31.9) Active confirmed Problem Marrero's esophagus (505400256) Marrero's esophagus (K22.70) Active confirmed Problem Obstructive sleep apnea syndrome (76404400) Obstructive sleep apnea syndrome (G47.33) Active confirmed patient reports is using CPAP on regular basis but has residual sleep fragmentation. There are several possible etiologies including residual apnea, air leak and other mask problems leading to awakenings, stress, other sleep-related abnormalities such as periodic limb movements. Next step is to obtain data from pt's unit then decide if changes to settings are needed, change in interface, repeat PSG, etc Problem Chronic rhinitis (18744995) Chronic rhinitis (J31.0) Active confirmed this is probably in large part due to smoking Problem Tobacco use (270815986) Tobacco use disorder (Z72.0) Active confirmed pt has quit in past with hypnosis. feeling very stressed and not certain if can quit at this time but willing to try hypnosis again Problem Obesity (678646148) Obesity (E66.9) Active confirmed pt has lost siginficant amount of weight, intentionally Problem Dietary management surveillance (144116611) Dietary counseling and surveillance (Z71.3) Active confirmed Plan Of Treatment Pending Test Test Name Order Date CBC/DIFF (W/PLT) 01/28/2013 FERRITIN 01/28/2013 CHEM 7 (GLU,BUN,CREAT,LYTES) 01/28/2013 IRON 01/28/2013 LIPID PANEL (CHOL,TRIG,HDL,LDL, CHOL/HDL RATIO) 01/28/2013 LIVER PANEL 01/28/2013 TIBC 01/28/2013 XRAY CHEST PA LAT 08/12/2014 Transferrin Saturation 01/28/2013 X ray: Chest PA and Lateral 03/27/2016 Insurance Providers Payer Name Payer Address Payer Phone Subscriber Number Group Number Insured Name Patient Relationship to Insured Coverage Start Date Coverage End Date [address] [address] [phone] [id number] [id number] Self - patient is the insured Medical (General) History Medical History History ICD Code Bipolar affective disorder Psychiatrist Dr. Camacho Marrero's esophagus (last EGD 08/2012) Reflux DANNA on CPAP at [address]. E[address] Kaminski Surgical History Surgery Date(Month/Year) perianal abscess I&D 02/27 nasal turbinoplasty 2011 Hospitalization History Reason Date(Month/Year) Pericarditis x 2 (2005 and )
== END 2025-02-02 15:02 | disposition home or self-care (01) ==
LOC: HO.HPS 14:10
PROVIDERS: PCP Internal Medicine; Referring Provider Internal Medicine; Visit Provider Internal Medicine
DX: E66.9 Obesity, unspecified (principal); G47.33 Obstructive sleep apnea (adult) (pediatric); F17.200 Nicotine dependence, unspecified, uncomplicated; J44.9 Chronic obstructive pulmonary disease, unspecified
CPT/HCPCS: 99204

== ENCOUNTER → 2025-02-02 14:10 | Outpatient (BNVA) | payer OTHER, SELFPAY | PROVIDERS: PCP Internal Medicine; Referring Provider Internal Medicine; Visit Provider Internal Medicine | DX: J44.9 Chronic obstructive pulmonary disease, unspecified (principal); G47.33 Obstructive sleep apnea (adult) (pediatric); E66.9 Obesity, unspecified; F17.210 Nicotine dependence, cigarettes, uncomplicated; Z68.34 Body mass index [BMI] 34.0-34.9, adult; Z99.89 Dependence on other enabling machines and devices | CPT/HCPCS: 99202 ==

== ENCOUNTER 2025-03-02 13:00 | Outpatient (REF) | payer OTHER, SELFPAY ==
[2025-03-02 11:00] VITALS: PULSE 95; RESP 16; O2SAT 96
--- OUTSIDE RECORDS SUMMARY | 2025-03-02 13:51 | XMS_ITS | Clinical Summary ---
Author Organization [facility] Address [address] [place] [address] Phone Care Team Providers Care Manager Wellness Name Role Phone Daisy Mliian MD Primary Care Provider [phone] Allergies No known active allergies Medications miscellaneous medical supply misc 7-9cm via cpap q hs Active lamoTRIgine (LaMICtal) 200 mg tablet Take 2.5 Tabs by mouth daily for 30 days. 10/19/2019 Active omeprazole (PriLOSEC) [address] capsule Take 1 capsule (20 mg total) by mouth 1 (one) time each day. Take 1 Capsule by mouth daily 90 each 3 10/11/2024 Active atorvastatin (LIPITOR) 20 mg tablet TAKE ONE TABLET BY MOUTH EVERY DAY IN THE EVENING 90 tablet 1 11/04/2024 Active Active Problems Problem Noted Date Diagnosed Date Marrero's esophagus 05/27/2024 Overview (05/27/2024): EGD annually, last EGD 11/2020 no dysplasia Current every day smoker 05/27/2024 Vitamin D deficiency 06/27/2022 Esophageal varices determine d by endoscopy ([facility]/HCC V24, CMS/HCC V28) 03/02/2021 Cirrhosis (CMS/HCC V24, CMS/[facility] V28) 03/02/2021 Hypercholesteremia 03/21/2018 Obesity (BMI 30-39.9) 03/19/2018 Bipolar affective disorder ([facility] V24, [facility] V28) 06/27/2017 Overview (05/27/2024): [facility] Esophageal reflux 08/14/2006 Obstructive sleep apnea 08/14/2006 Overview (05/27/2024): [facility] Polysomnogram: Date 03/15/1998; Wt 260#; RDI 45 Central apneas 33; Obstructive apneas 43; Mixed apneas 9; hypopneas 142; average oxygen saturation 95% (lowest 86%). [facility] 05-12-98 CPAP titration: SE:77% CPAP 7-> RDI: 1.0 Min 02 sat 93%, PLMAI: 0 08-02-08 SMS CPAP trial from the beginning SE 93% SM 93%, sleep latency 3 min REM latency 73 min, 73 min of REM seen but none supine, light snoring only noted, AHI 3.5, PLMAI 0, REM AHI 8.3, CPAP 12 -> AHI 0 Immunizations Name Administration Dates Next Due Hepatitis B (Ijovply-H-Dqtod , Recombivax HB-Adult) 19yo and older 10/17/2010,05/23/2010,04/18/2010 Influenza Quadravalent, MDCK , 0.5ml, preservative free (Flucelvax) 6mo and older 07/02/2022,08/02/2021,05/13/2019 Influenza trivalent, with pr eservative (Fluzone; Afluria) 6mo and older 04/28/2020,05/12/2018 Moderna SARS-CoV-2 COVID-19, mRNA, LNP-S, preservative free 01/31/2021,01/03/2021 Pneumococcal polysaccharide 23 valent (Pneumovax 23) 2yo and older 12/26/2021 Tdap Tetanus diptheria acell ular pertussis (Boostrix; Adacel) 7yo and older 01/08/2017,12/15/2006 Surgical History Surgery Date Site/Laterality Comments TONSILLECTOMY 29 yrs old PROCEDURE: HISTORICAL TONSILLECTOMY ESOPHAGOGASTRODUODENOSCOPY 07/28/09 PROCEDURE: MD ESOPHAGOGASTRODUODENOSCOPY TRANSORAL DIAGNOSTIC; COMMENT: Marrero's esophagus without dysplasia and hiatus hernia. Repeat in two years. OTHER SURGICAL HISTORY PROCEDURE: MD EXCISION INFERIOR TURBINATE PARTIAL/COMPLETE COLONOSCOPY Medical History Medical History Date Comments Bipolar affective disorder ( [facility] V24, [facility] V28) 06/27/2017 [facility] Depression 11/26/2017 Esophageal reflux 08/14/2006 Hypercholesteremia 03/21/2018 Obstructive sleep apnea 08/14/2006 on CPAP Marrero's esophagus Q 3 yrs EGD, last EGD 06/22/2018 Varices, gastric Family History Medical History Relation Name Comments Asthma Father AVR Arthritis Mother cervical cancer Arthritis Paternal Grandmother Relation Name Status Comments Father Alive Mother Alive Paternal Grandmother Social History Tobacco Use Types Packs/Day Years Used Date Smoking Tobacco: Every Day Cigarettes Smokeless Tobacco: Former Tobacco Cessation:Ready to Q uit: Not Asked; Counseling Given: Not Answered Alcohol Use Standard Drinks/Week Comments Yes 3 (1 standard drink = 0.6 oz pur e alcohol) Housing Instability Answer Date Recorde d Are you worried that in the next 2 months you may not have stable housing? No 10/10/2024 Food Access & Nutrition Answer Date Rec orded Do you have access to a vari ety of food including fruits and vegetables? Yes 10/10/2024 Access to Healthcare Answer Date Record ed Within the last 3 months, elin schaeffer many times did you visit the emergency department for your medical care? 0 10/10/2024 Health Literacy Answer Date Recorded How often do you need to hav e someone help you when you read instructions, pamphlets, or other written material from your doctor or pharmacy? Never 10/10/2024 Caregiver: How often do you need to have someone help you when you read instructions, pamphlets, or other written material from your doctor or pharmacy? Not on file 10/10/2024 Financial Risk Answer Date Recorded How hard is it for you to pa y for the very basics like food, housing, medical care, and air conditioning / heating? Not very hard 10/10/2024 Transportation Answer Date Recorded Has the lack of transportati on kept you from meetings, work, or from getting things needed for daily living? No Has the lack of transportati on kept you from medical appointments or from getting medications? No 10/10/2024 Social Isolation Answer Date Recorded How often do you feel lonely or isolated from th ose around you? Never 10/10/2024 Food Risk Answer Date Recorded Within the past 12 months we worried whether our food would run out before we got money to buy more. Never true 10/10/2024 Within the past 12 months th e food we bought just didn't last and we didn't have money to get more. Never true 10/10/2024 Dependent Care Answer Date Recorded Do you need help finding or paying for care for your loved ones. For example, child health associate or elderly care for an older adult? No 10/10/2024 Education Answer Date Recorded Do you think completing more education or training, like finishing a GED, going to college, or learning a trade, would be helpful for you? No 10/10/2024 Employment and Income Answer Date Recor ded During the last four weeks, have you been actively looking for work? No 10/10/2024 Living Situation Answer Date Recorded What is your living situation? 0 10/10/2024 Interpersonal Safety Answer Date Record ed Physical Abuse 07/08/2024 Verbal Abuse 07/08/2024 Sex and Gender Information Value Date Recorded Sex Assigned at Male 07/02/2024 6:59 AM EST Legal Sex Male 4:30 PM EST Gender Identity Male 07/02/2024 6:59 AM EST Sexual Orientation Straight 07/02/2024 6: 59 AM EST Obstetrics History Last Filed Vital Signs Vital Sign Reading Time Taken Comments Blood Pressure 122/60 10/11/2024 2:46 PM EST Pulse 87 10/11/2024 2:46 PM EST Temperature 36.2 C (97.1 F) 10/11/2024 2:46 PM EST Respiratory Rate 16 10/11/2024 2:46 PM EST Oxygen Saturation 96% 10/11/2024 2:46 PM EST Inhaled Oxygen Concentration - - Weight 118 kg (259 lb 3.2 oz) 10/11/2024 2:46 PM EST Height 182.9 cm (6') 10/11/2024 2:46 PM EST Body Mass Index 35.15 10/11/2024 2:46 PM EST Plan of Treatment Upcoming Encounters Date Type Department Care Team (Late st Contact Info) Description 04/25/2025 4:00 PM EDT Office Visit Adult Medicine [address] [place] [address] [place] [address] [place] [address] Health Maintenance Due Date Last Done Comments Hepatitis A Vaccines (1 of 2 - Risk 2-dose series) 1991 Zoster Vaccines (1 of 2) 2022 Lung Cancer Screening (Low Dose CT) 07/27/2022 Pneumococcal Vaccine: 50+ Years (2 of 2 - PCV) 12/26/2022 12/26/2021 COVID-19 Vaccine ( season) 2024 08/26/2021, 01/31/2021, 01/03/2021 Influenza Vaccine (#1) 2025 , 08/02/2021, 04/28/2020, Additional history exists Depression Screening 10/10/2025 10/10/2024, 04/07/20 Social Influencers of Health Screening 10/10/2025 10/10/2024 DTaP,Tdap,and Td Vaccines (3 - Td or Tdap) 01/08/2027 01/08/2017, 12/15/2006 Colorectal Cancer Screening: Colonoscopy 07/08/2029 07/08/2024, 06/10/2018 Cholesterol Screening (Lipid Panel) 10/07/2029 10/07/2024, 04/08/2024, 04/08/2024, Additional history exists Hepatitis B Vaccines Completed 10/17/2010, 05/23/2010, 04/18/2010 HIV Screening Completed 04/08/2024, 04/08/2024 Hepatitis C Screening Completed 04/08/2024 HIB Vaccines Aged Out No longer eligi ble based on patient's age to complete this topic HPV Vaccines Aged Out No longer eligi ble based on patient's age to complete this topic IPV Vaccines Aged Out No longer eligi ble based on patient's age to complete this topic MMR Vaccines Aged Out No longer eligi ble based on patient's age to complete this topic Meningococcal ACWY Vaccine Aged Out N o longer eligible based on patient's age to complete this topic Meningococcal B Vaccine Aged Out No l onger eligible based on patient's age to complete this topic RSV Immunization Patients Under 20 months Aged Out No longer eligible based on patient's age to complete this topic Varicella Vaccines Aged Out No longer eligible based on patient's age to complete this topic Procedures Procedure Name Priority Date/Time Associated Diagnosis Comments LIPID PANEL WITH REFLEX TO DIRECT LDL Routine 10/07/2024 8:38 AM EST Hypercholesteremia COLONOSCOPY Routine 07/08/2024 11:27 AM EST Colon cancer screening HEPATITIS C SCREENING Routine 04/08/2024 HIV SCREENING Routine 04/08/2024 DEPRESSION SCREENING Routine 04/07/2024 from Last 3 Months or Most Recently Relevant to Health Maintenance Results * Lipid panel with reflex to direct LDL (10/07/2024 8:38 AM EST) Cholesterol 147 0 - 200 mg/dL LAB CHEMISTRY METHOD 10/07/2024 10:23 AM [facility] Triglycerides 105 0 - 150 mg/dL LAB CHEMISTRY METHOD 10/07/2024 10:23 AM [facility] HDL 47 >=40 mg/dL LAB CHEMISTRY METHOD 10/07/2024 10:23 AM [facility] LDL Calculated 79 0 - 100 mg/dL LAB CHEMISTRY METHOD 10/07/2024 10:23 AM [facility] VLDL Cholesterol Diego 21 mg/dL LAB CHEMISTRY METHOD 10/07/2024 10:23 AM [facility] Non HDL Chol. (LDL+VLDL) 100 <145 mg/dL LAB CHEMISTRY METHOD 10/07/2024 10:23 AM [facility] Chol/HDL Ratio 3.1 0.0 - 4.4 LAB CHEMISTRY METHOD 10/07/2024 10:23 AM [facility] Blood Venous blood specimen / Unknown Venipuncture / Unknown 10/07/2024 8:38 AM EST 10/07/2024 8:38 AM EST Tonie KAMARA LAB BLOOD ORDERABLES Final Resul t [facility] ([facility]) HOSP[facility] LAB [address] [place] [address], * COLONOSCOPY Anesthesia - MAC; [facility] ENDOSCOPY (07/08/2024 11:27 AM EST) Anatomical Region Laterality Modality Endoscopy 07/08/2024 11:0 0 AM EST Impressions 07/08/2024 11:32 AM EST - One 3 mm polyp in the transverse colon, removed with a cold snare. Resected and retrieved. - Internal hemorrhoids. Recommendation: - Await pathology results. - Repeat colonoscopy in 5 years for surveillance. Narrative 07/08/2024 11:32 AM EST [facility] Patient Name: Maulik Harley Procedure Date: 07/08/2024 11:00 AM Date of : 1970 Age: 54 Gender: Male Note Status: Finalized Attending MD: Herb Bo MD, Procedure Date No Time: 07/08/2024 Procedure: Colonoscopy Indications: Evaluation of unexplained GI bleeding presenting with Hematochezia Providers: Herb Bo MD Referring MD: Herb Bo MD Medicines: Monitored Anesthesia Care Complications: No immediate complications. Estimated blood loss: Minimal. Estimated Blood Loss: Estimated blood loss was minimal. Procedure: Pre-Anesthesia Assessment: - Prior to the procedure, a History and Physical was performed, and patient medications and allergies were reviewed. The patient is competent. The risks and benefits of the procedure and the sedation options and risks were discussed with the patient. All questions were answered and informed consent was obtained. Patient identification and proposed procedure were verified by the physician, the nurse, the closing coordinator and the neon technician in the pre-procedure area in the endoscopy suite. Mental Status Examination: alert and oriented. Airway Examination: normal oropharyngeal airway and neck mobility. Respiratory Examination: clear to auscultation. CV Examination: normal. Prophylactic Antibiotics: The patient does not require prophylactic antibiotics. Prior Anticoagulants: The patient has taken no anticoagulant or antiplatelet agents. ASA Grade Assessment: III - A patient with severe systemic disease. After reviewing the risks and benefits, the patient was deemed in satisfactory condition to undergo the procedure. The anesthesia plan was to use monitored anesthesia care (MAC). Immediately prior to administration of medications, the patient was re-assessed for adequacy to receive sedatives. The heart rate, respiratory rate, oxygen saturations, blood pressure, adequacy of pulmonary ventilation, and response to care were monitored throughout the procedure. The physical status of the patient was re-assessed after the procedure. After I obtained informed consent, the scope was passed under direct vision. Throughout the procedure, the patient's blood pressure, pulse, and oxygen saturations were monitored continuously.The Colonoscope was introduced through the anus and advanced to the cecum, identified by appendiceal orifice and ileocecal valve. The colonoscopy was performed without difficulty. The patient tolerated the procedure well. The quality of the bowel preparation was good. Findings: The perianal and digital rectal examinations were normal. A 3 mm polyp was found in the transverse colon. The polyp was sessile. The polyp was removed with a cold snare. Resection and retrieval were complete. Estimated blood loss was minimal. Internal hemorrhoids were found during retroflexion. The hemorrhoids were Grade II (internal hemorrhoids that prolapse but reduce spontaneously). Procedure Code(s): --- Professional --- 96953, Colonoscopy, flexible; with removal of tumor(s), polyp(s), or other lesion(s) by snare technique Diagnosis Code(s): --- Professional --- D12.3, Benign neoplasm of transverse colon (hepatic flexure or splenic flexure) CPT copyright 2020 [employer]. All rights reserved. The codes documented in this report are preliminary and upon supervisor metal hanging review may be revised to meet current compliance requirements. Herb Bo MD 07/08/2024 11:32:15 AM This report has been signed electronically.Herb Bo MD Number of Addenda: 0 Note Initiated On: 07/08/2024 11:00 AM Scope Withdrawal Time: 0 hours 6 minutes 51 seconds Scope In: 11:05:37 AM Scope Out: 11:15:23 AM Endoscopy Department at [address] [place] [address] Procedure Note Herb Bo MD - 07/08/2024 [facility] GI Patient Name: Maulik Harley Procedure Date: 07/08/2024 11:00 AM Date of : 1970 Age: 54 Gender: Male Note Status: Finalized Attending MD: Herb Bo MD, Procedure Date No Time: 07/08/2024 Procedure: Colonoscopy Indications: Evaluation of unexplained GI bleeding presentingwith Hematochezia Providers: Herb Bo MD Referring MD: Herb Bo MD Medicines: Monitored Anesthesia Care Complications: No immediate complications. Estimated blood loss: Minimal. Estimated Blood Loss: Estimated blood loss was minimal. Procedure: Pre-Anesthesia Assessment: - Prior to the procedure, a History and Physicalwas performed, and patient medications and allergieswere reviewed. The patient is competent. The risks and benefits of the procedure and the sedation optionsand risks were discussed with the patient. Allquestions were answered and informed consent was obtained. Patient identification and proposed procedure were verified by the physician, the nurse, theanesthetist and the neon technician in the pre-procedure area in the endoscopy suite. Mental Status Examination: alertand oriented. Airway Examination: normal oropharyngeal airway and neck mobility. Respiratory Examination: clear to auscultation. CV Examination: normal. Prophylactic Antibiotics: The patient does notrequire prophylactic antibiotics. Prior Anticoagulants: The patient has taken no anticoagulant or antiplatelet agents. ASA Grade Assessment: III - A patient with severe systemic disease. After reviewing the risksand benefits, the patient was deemed in satisfactory condition to undergo the procedure. The anesthesia plan was to use monitored anesthesia care (MAC). Immediately prior to administration of medications, the patient was re-assessed for adequacy to receive sedatives. The heart rate, respiratory rate, oxygen saturations, blood pressure, adequacy of pulmonary ventilation, and response to care were monitored throughout the procedure. The physical status ofthe patient was re-assessed after the procedure. After I obtained informed consent, the scope was passed under direct vision. Throughout theprocedure, the patient's blood pressure, pulse, and oxygen saturations were monitored continuously.The Colonoscope was introduced through the anus and advanced to the cecum, identified by appendiceal orifice and ileocecal valve. The colonoscopy was performed without difficulty. The patient tolerated the procedure well. The quality of the bowel preparation was good. Findings: The perianal and digital rectal examinations were normal. A 3 mm polyp was found in the transverse colon. The polyp was sessile. The polyp was removed with acold snare. Resection and retrieval were complete. Estimated blood loss was minimal. Internal hemorrhoids were found duringretroflexion. The hemorrhoids were Grade II (internal hemorrhoids that prolapse but reduce spontaneously). Procedure Code(s): --- Professional --- 47440, Colonoscopy, flexible; with removal of tumor(s), polyp(s), or other lesion(s) by snare technique Diagnosis Code(s): --- Professional --- D12.3, Benign neoplasm of transverse colon (hepatic flexure or splenic flexure) CPT copyright 2020 [employer]. All rights reserved. The codes documented in this report are preliminary and upon supervisor metal hanging reviewmay be revised to meet current compliance requirements. Herb Bo MD 07/08/2024 11:32:15 AM This report has been signed electronically.Herb Bo MD Number of Addenda: 0 Note Initiated On: 07/08/2024 11:00 AM Scope Withdrawal Time: 0 hours 6 minutes 51 seconds Scope In: 11:05:37 AM Scope Out: 11:15:23 AM Endoscopy Department at [facility] - [address] [place] [id number] IMPRESSION: - One 3 mm polyp in the transverse colon, removed with a cold snare. Resected and retrieved. - Internal hemorrhoids. Recommendation: - Await pathology results. - Repeat colonoscopy in 5 years for surveillance. Herb Bo MD GI~PROCEDURE ORDERABLES Fin al Result * HIV Screening (04/08/2024) HIV Screening abstracted Historical Provider HEALTH MAINTENANCE Final Result * Hepatitis C Screening (04/08/2024) Hepatitis C Screening abstracted Historical Provider HEALTH MAINTENANCE Final Result * Depression Screening (04/07/2024) Depression Screening abstracted us Historical Provider HEALTH MAINTENANCE Final Result from Last 3 Months or Most Recently Relevant to Health Maintenance Insurance [facility] [place] [address] Care Teams Manager Wellness Relationship Specialty Start Date End Date Daisy Milian MD [address] [place] [address] PCP - General Internal Medicine 06/28/21
--- OUTSIDE RECORDS SUMMARY | 2025-03-02 13:51 | XMS_ITS | Patient Health Record ---
Author Organization [facility] Address [address] [place] [address] Care Team Providers Care Soldering Inspector Name Role Phone Mushtaq Vo Unavailable [phone] Reason For Referral No Information Plan Of Treatment No Information
--- OUTSIDE RECORDS SUMMARY | 2025-03-02 13:51 | XMS_ITS | Patient Health Record ---
Author Organization [facility] Address [address] [place] [address] Care Team Providers Care Stockroom Clerk Name Role Phone UNKNOWN, PROVIDER Primary Care Provider Brandan ACOSTA, Roro Eddy [phone] Medications Medication SIG (Take, Route, Frequency, Duration) [...] >5 cups per day Occupation: Owns an [employer] Diet: Eats healthier a t home, [employer] for lunch Alcohol: 2- drinks per ni ght. Lives with: , 1 year old son, 9 year old son (shared custody) Section Notes: 05/2015-smoking 1-1.5 PPD 05/2015-smoking 1-1.5 PPD 05/2015-smoking 1-1.5 PPD 05/2015-smoking 1-1.5 PPD Problems Problem Type SNOMED Code ICD Code Onset Dates Problem Status W/U Status Risk Notes Problem Obesity (098587084) Obesity (E66.9) Active confirmed pt has lost siginficant amount of weight, intentionally Problem Obstructive sleep apnea syndrome (45068995) Obstructive sleep apnea syndrome (G47.33) Active confirmed [...] change in interface, repeat PSG, etc Problem Dietary management surveillance (698424683) Dietary counseling and surveillance (Z71.3) Active confirmed Problem Chronic rhinitis (09822200) Chronic rhinitis (J31.0) Active confirmed this is probably in large part due to smoking Problem Bipolar disorder (48913707) Bipolar disorder (F31.9) Active confirmed Problem Marrero's esophagus (914676406) Marrero's esophagus (K22.70) Active confirmed Problem Tobacco use (103748187) Tobacco use disorder (Z72.0) Active confirmed pt has quit in past with hypnosis. feeling very stressed and not certain if can quit at this time but willing to try hypnosis again Plan Of Treatment Pending Test Test Name [...] Insured Coverage Start Date Coverage End Date [address] [id number] [employer] Self - patient is the insured Medical (General) History Medical History History ICD Code Bipolar affective disorder Psychiatrist Dr. Camacho Marrero's esophagus (last EGD 08/2012) Reflux DANNA on CPAP at [address]. ENT [address] Kaminski Surgical History Surgery Date(Month/Year) perianal abscess I&D 02/27 nasal turbinoplasty 2011 Hospitalization History Reason Date(Month/Year) Pericarditis x 2 (2005 and )
--- OUTSIDE RECORDS SUMMARY | 2025-03-02 13:51 | XMS_ITS | Clinical Summary ---
Author Organization [facility] Address [address] [place] [address] Care Team Providers Care News Analyst Name Role Phone Unavailable Primary Care Provider Unavailabl e Social History Tobacco Use Types Packs/Day Years Used Date Smoking Tobacco: Never Assessed Sex and Gender Information Value Date Recorded Sex Assigned at Not on file Legal Sex Male 11:17 AM EDT Gender Identity Not on file Sexual Orientation Not on file Plan of Treatment Health Maintenance Due Date Last Done Comments Hepatitis C Virus Screening 1970 HIV Screening 1985 DTaP/Tdap/Td Vaccines (1 - Tdap) 1991 Hepatitis B Vaccines (1 of 3 - 19+ 3-dose series) 03/18 Pneumococcal Vaccines 50+ (1 of 1 - PCV) 2022 Zoster (Shingles) Vaccine (1 of 2) 2022 COVID-19 Vaccine ( - 2023- season) 2024
--- NOTE | 2025-03-02 14:41 | PFT_ITS ---
Flows: FEV1: 92 % of predicted at 3.78 L FVC: 101 % of predicted at 5.29 L FEV1/FVC: 71 % Bronchodilator response: Present in small to medium airways only. Volumes: Total lung capacity: 97 % of predicted at 7.51 L Residual volume: 99 % of predicted at 2.07 L Slow vital capacity: 96 % of predicted at 5.44 L Expiratory reserve volume: 86 % of predicted at 1.36 L Diffusion capacity: Normal Impression: Reversible mild obstructive ventilatory defect with bronchodilator response present in small to medium airways only. MTDD
== END 2025-03-02 13:01 | disposition home or self-care (01) ==
LOC: HO.RESP 13:00
PROVIDERS: PCP Internal Medicine; Visit Provider Internal Medicine
DX: J44.9 Chronic obstructive pulmonary disease, unspecified (principal); F17.200 Nicotine dependence, unspecified, uncomplicated
CPT/HCPCS: 94010; 94640; 94727; 94729; 99212

== ENCOUNTER 2025-03-02 13:42 | Outpatient (AMB) | payer OTHER, SELFPAY ==
[2025-03-02 13:58] VITALS: PULSE 94; O2SAT 97; BMI 34.4
--- NOTE | 2025-03-02 13:58 | A.OFFVIS_ITS ---
Vital Signs 03/02/25 13:58 Height 6 ft Weight 253 lb 8.505 oz BMI 34.4 Pulse 94 Pulse Source Pulse Oximeter Pulse Oximetry (%) 97 Oxygen Delivery Method Room Air Intake Visit Reasons: Obstructive sleep apnea/Same Day PFT Intake Note: pt is here for follow up of pft, Engine Watchman Required: No Allergies No Known Allergies Allergy (Verified 03/02/25 14:31) Medication List - Last Reconciled 03/02/25 by Michael Jose MD atorvastatin 20 mg PO QPM lamotrigine 500 mg PO QAM omeprazole 20 mg PO DAILY Do you need a note to return to daycare/school/sports/work: No HPI HPI Obstructive sleep apnea/Same Day PFT: Details: THIS 54 YEARS OLD GENTLEMAN WITH GROSS OBESITY, AND DIAGNOSIS OF OBSTRUCTIVE SLEEP APNEA SINCE 2007, HAS BEEN ON CPAP THERAPY USING NASAL MASK AND PRESSURE OF 10 CM. HE HAS BEEN VERY COMPLIANT AND USES THE CPAP EVERY NIGHT. HIS CURRENT CPAP EQUIPMENT IS 4 YEARS OLD, IT DOES MAKE SOME NOISES AND HE LIKES TO GET THE NEW EQUIPMENT, BUT HE HAS TO WAIT UNTILL 2025 . HE HAS HISTORY OF SMOKING MORE THAN 30 YEARS, AT 1 PACK A DAY. HAS BEEN REGISTERED IN LUNG SCREENING PROGRAM. HE DOES HAVE MILD COUGH OFF AND ON, HE JUST HAD THE PULMONARY FUNCTION TEST. [facility] Medical History COPD (chronic obstructive pulmonary disease) Smoker DANNA on CPAP Obesity (BMI 35.0-39.9 without comorbidity) Social History Alcohol intake: current Alcohol intake frequency: 3 or more drinks per day Alcohol type: hard liquor Patient Tobacco Use Status: Current everyday Tobacco user Cigarette Packs Per Day: 1 Cigarettes Per Day: 20 Review of Systems Const All systems reviewed & are unremarkable except as noted in HPI and below Eyes Reports no additional complaints ENT Reports nasal discharge and Reports nasal obstruction (INTERMITTENT) Card Denies chest pain, Denies syncope, Denies irregular heart rhythm and Denies leg edema Resp Reports as per HPI GI Reports no additional complaints Reports no additional complaints Musc Reports no additional complaints Skin/Breast Reports system reviewed and no additional complaints, except as documented Neuro Reports no additional complaints and Denies syncope Psych Reports no additional complaints Endo Reports no additional complaints Edis/Lymph Reports no additional complaints Aller/Immun Reports no additional complaints Physical Exam Vital Signs: Last Vital Signs Pulse 94 03/02/25 13:58 Pulse Ox 97 03/02/25 13:58 Oxygen Delivery Method Room Air 03/02/25 13:58 BMI result Body Mass Index 34.4 Const General: healthy appearing (EXCEPT FOR BEING OVERWEIGHT), comfortable, no acute distress, alert and awake Orientation/consciousness: patient oriented x3 HEENT Head: Yes normal to inspection General nose exam: No nasal polyps present and No nasal discharge present Face and sinus: Yes sinuses nontender Mouth: oropharynx abnormals (STATUS POST TONSILLECTOMY, MALLAMPATI CLASS 3.) Throat: Yes posterior oropharynx normal Eyes General: appearance normal, both eyes and all related structures Neck Other: NECK CIRCUMFERENCE 18 IN Neck: Yes normal visual inspection, Yes no lymphadenopathy, Yes trachea midline and Yes no JVD Thyroid: Thyroid normal Chest Chest palpation & inspection: normal inspection of the chest, normal palpation of entire chest wall and no tenderness Resp Effort & Inspection: normal respiratory effort Auscultation: clear to auscultation bilaterally Cardio Palpation: normal PMI Rate: regular rate Rhythm: regular rhythm Heart sounds: no gallops and no murmurs Peripheral pulses: Peripheral pulses 2+ throughout GI Palpation (GI): Soft to palpation, Tenderness to palpation present (GI), No hepatosplenomegaly present and Palpable mass present Auscultation: normal bowel sounds Back/Spine/Pelvis Thoracic/Lumbar Spine: thoracic and lumbar spine normal to inspection Skin General skin exam: no rashes or lesions noted Neuro General: patient oriented x3 and no focal motor deficits Cranial nerves: Yes CN's II-XII intact bilaterally Extrem General: Yes normal to inspection, Yes no clubbing, cyanosis or edema and Yes no calf tenderness Psych Speech and movement: Normal speech and movement present Results Reviewed Results Reviewed: PULMONARY FUNCTION TEST PERFORMED TODAY. SHOWS A VERY MILD DEGREE OF OBSTRUCTIVE AIRWAY DISORDER. FEV1 87% BUT FEV1/FVC RATIO IS 65 FEF 25-75 IS 47% WITH 35% IMPROVEMENT AFTER BRONCHODILATOR Assessment & Plan Assessment & Plan (1) DANNA on CPAP: Comment: History of established diagnosis of obstructive sleep apnea since 2007. Patient claims that has been using CPAP regularly. He has some issues with the current CPAP machine making some nice at night and it is about 4 years old. Code(s): G47.33 - Obstructive sleep apnea (adult) (pediatric) Category: Medical Plan: PATIENT IS ADVISED TO KEEP ON USING THE CURRENT CPAP. WITH NASAL MASK AND PRESSURE OF 10 CM. HE WILL BE ELIGIBLE TO GET A NEW CPAP MACHINE NEXT YEAR. (2) Smoker: Comment: He has history of smoking 1 pack of cigarettes a day for more than 30 years. Has mild to moderate intermittent cough related to smoking. Also gets short of breath on walking up stairs or walking outdoors. Code(s): F17.200 - Nicotine dependence, unspecified, uncomplicated Category: Social Hx Plan: AGAIN COUNSELED TO CUT DOWN THE NUMBER OF CIGARETTES WITH THE GOAL TO QUIT COMPLETELY WITHIN THE NEXT 6 MONTHS OR SO. HE IS REGISTERED IN ANNUAL LUNG SCREENING PROGRAM. (3) COPD (chronic obstructive pulmonary disease): Comment: PULMONARY FUNCTION TEST REVIEWED AND THERE IS EVIDENCE OF VERY MILD OBSTRUCTIVE AIRWAY DISORDER, WITH GOOD RESPONSE TO BRONCHODILATOR THERAPY. H ACTUALLY INDICATES VERY MILD REVERSIBLE CHRONIC OBSTRUCTIVE PULMONARY DISORDER. Code(s): J44.9 - Chronic obstructive pulmonary disease, unspecified Category: Medical Plan: EXPLAINED THAT THIS IS DUE TO HIS SMOKING. MAY USE ALBUTEROL HFA 2 PUFFS Q 6 HOURS P.R.N., BUT HE DOES NOT WANT TO START USING ANY INHALER (4) Obesity (BMI 35.0-39.9 without comorbidity): Comment: Current BMI 34.4 He does have a round face and neck circumference 18 inches C/W DIAGNOSIS OF OBSTRUCTIVE SLEEP APNEA. Code(s): E66.9 - Obesity, unspecified Category: Medical Plan: DISCUSSED THAT HE HAS TRY TO LOSE SOME WEIGHT. RESTRICT CALORIES INTAKE ALSO TRY TO WALK WITH A BRISK WALKING SPEED ABOUT 2 MILES EVERY DAY Coding Level of Care Code Est Pt Level 3 (14456) Diagnoses DANNA on CPAP G47.33 Smoker F17.200 COPD (chronic obstructive pulmonary disease) J44.9 Obesity (BMI 35.0-39.9 without comorbidity) E66.9
== END 2025-03-02 14:30 | disposition home or self-care (01) ==
LOC: HO.HPS 13:42
PROVIDERS: PCP Internal Medicine; Visit Provider Internal Medicine
DX: G47.33 Obstructive sleep apnea (adult) (pediatric) (principal); F17.200 Nicotine dependence, unspecified, uncomplicated; J44.9 Chronic obstructive pulmonary disease, unspecified; E66.9 Obesity, unspecified
CPT/HCPCS: 99213

== ENCOUNTER 2025-05-20 09:26 | Outpatient (AMB) | payer OTHER, SELFPAY ==
--- NOTE | 2025-05-20 07:54 | A.OFFVIS_ITS ---
Intake Visit Reasons: Current Smoker Allergies No Known Allergies Allergy (Verified 03/02/25 14:31) HPI HPI Current Smoker: Details: Initial visit for this 55yo smoker with a 40PYH. Patient started smoking at age 14 for 41 years at 1ppd. . Denies marijuana use. Denies second hand smoke exposure. Denies exposure to chemicals or substances like asbestos. . Family history of lung cancer. Paternal Grandfather at 61 Denies personal history of cancers. Denies chest CT in last year. . Denies recent travel outside the [place]. Denies recent respiratory illness or recent hospitalization for respiratory issues. Denies testing positive for COVID. Admits receiving COVID Vaccine. . Denies fever, chills, new/worsening cough, hemoptysis, hoarseness or dysphagia. Denies significant chest pain, significant dyspnea or unintentional weight loss. Patient Lung Cancer Screening Questionnaire reviewed with patient by provider. . Shared Decision Making Completed. Patient meets criteria. Discussed in detail with patient, the risk vs benefit of LDCT screening. Patient consents to proceed with scan. Discussed smoking cessation. [facility] Medical History (Updated 05/20/25 @ 09:59 by Susan Galvin PA-C) Obesity (BMI 30-39.9) Nicotine dependence, cigarettes, uncomplicated COPD (chronic obstructive pulmonary disease) DANNA on CPAP Surgical History (Updated 05/20/25 @ 09:45 by Susan Galvin PA-C) History of colonoscopy History of turbinectomy History of tonsillectomy History of esophagogastroduodenoscopy (EGD) Family History (Updated 05/20/25 @ 09:43 by Susan Galvin PA-C) Paternal Grandfather Lung cancer Father Bicuspid aortic valve Social History (Updated 05/20/25 @ 09:41 by Susan Galvin PA-C) Alcohol intake: current Alcohol intake frequency: 3 or more drinks per day Alcohol type: hard liquor Patient Tobacco Use Status: Current everyday Tobacco user Cigarette Packs Per Day: 1 Cigarettes Per Day: 20 Years Smoked: (onset 14yo, 1ppd x 41yrs, 40pyh) Assessment & Plan Assessment & Plan (1) Nicotine dependence, cigarettes, uncomplicated: Comment: (onset 14yo, 1ppd x 41yrs, 40pyh) Code(s): F17.210 - Nicotine dependence, cigarettes, uncomplicated Category: Medical Plan: - SDM visit completed today in office. - Patient meets criteria for LDCT for lung cancer screening purposes and is asymptomatic. - Smoking cessation counseling offered. Patients can always call [phone]. - Will arrange for a LDCT scan of the chest for screening purposes at [facility]. - Risks, benefits, and alternatives were discussed in detail and the patient agrees to proceed. - Risks discussed include but are not limited to: radiation exposure, anxiety during testing and while awaiting results, false negatives, false positives and possibility of additional intervention such as further imaging or surgical procedures for benign disease. - Benefits are obviously detection of lung cancer at an early stage which can lead to improved outcomes. - Discussed the importance of screening program compliance with adherence to yearly LDCT scan as scheduled - or sooner interval scans for personalized screening regimen. - Discussed follow up plan. Our office will send a letter discussing results and if needed set up phone call and office visit based on CT findings. - Patient educated on results categorization and the management decisions for suspicious findings potentially found on the screening LDCT scan. Any patient with a Lung RADS score of 3 or 4 will be reviewed by a multidisciplinary team at [facility] to form a plan of action in regards to scan findings. - If further work up is warranted for a suspicious lung finding this will be followed by the Lung Cancer Screening program in conjunction with the Thoracic Surgery Department at [facility]. - A copy of the office note and LDCT will be sent to the patient's PCP - as well as documentation on any associated further plans of care. - Incidental findings on LDCT are the PCP's responsibility. These findings are indicated with an S finding on the LDCT Assessment. A note discussing the findings will be sent to the PCP who is then responsible for further management. - All questions answered.? Coding Level of Care Code Lung Cancer Screening G0296 Diagnoses Nicotine dependence, cigarettes, uncomplicated F17.210
--- OUTSIDE RECORDS SUMMARY | 2025-05-20 10:10 | XMS_ITS | Clinical Summary ---
Author Organization [facility] Address [address] [place] [address] Phone Care Team Providers Care Stone Sawyer Name Role Phone Daisy Milian MD Primary Care Provider [phone] Allergies No known active allergies Medications miscellaneous medical supply misc 7-9cm via cpap q hs Active lamoTRIgine (LaMICtal) 200 mg tablet Take 2.5 Tabs by mouth daily for 30 days. 10/19/19 20 Active omeprazole (PriLOSEC) [address] capsule Take 1 capsule (20 mg total) by mouth 1 (one) time each day. Take 1 Capsule by mouth daily 90 each 3 10/11/19 25 026 Active atorvastatin (LIPITOR) 20 mg tablet Take 1 tablet (20 mg total) by mouth at bedtime. 90 tablet 1 05/19/20 25 Active atorvastatin (LIPITOR) 20 mg tablet TAKE ONE TABLET BY MOUTH EVERY DAY IN THE EVENING 90 tablet 1 11/05/19 25 025 Discontinued tiZANidine (ZANAFLEX) 4 mg tablet Take 1 tablet (4 mg total) by mouth 3 (three) times a day if needed for muscle spasms. 30 tablet 03/16/20 25 025 Discontinued(Th erapy completed) Active Problems Problem Noted Date Diagnosed Date Alcoholism ([facility] V24, [facility] V28) 04/25/2025 Ledezma's esophagus 05/27/2024 Overview (04/25/2025): 07/08/24: No dysplasia, repeat in 3 years (Dr. Bo) EGD annually, last EGD 11/2020 no dysplasia Current every day smoker 05/27/2024 Vitamin D deficiency 06/27/2022 Esophageal varices determine d by endoscopy ([facility] V24, [facility] V28) 03/02/2021 Overview (04/25/2025): 12/04/20: Grade I esophageal varices noted at lower third of esophagus on EGD (Dr. Bo) Hepatic steatosis 03/02/2021 Overview (04/25/2025): 09/27/22: Normal Fibrosure Hypercholesteremia 03/21/2018 Obesity (BMI 30-39.9) 03/19/2018 Bipolar affective disorder ([facility] V24, [facility] V28) 06/27/2017 Overview (05/27/2024): With [facility] Esophageal reflux 08/14/2006 Obstructive sleep apnea 08/14/2006 Overview (05/27/2024): [facility] Polysomnogram: Date 03/15/1998; Wt 260#; RDI 45 Central apneas 33; Obstructive apneas 43; Mixed apneas 9; hypopneas 142; average oxygen saturation 95% (lowest 86%). [facility] 05-12-98 CPAP titration: SE:77% CPAP 7-> RDI: 1.0 Min 02 sat 93%, PLMAI: 0 08-02-08 SMS CPAP trial from the beginning SE 93% SM 93%, sleep latency 3 min REM latency 73 min, 73 min of REM seen but none supine, light snoring only noted, AHI 3.5, PLMAI 0, REM AHI 8.3, CPAP 12 -> AHI 0 Encounters Date Type Department Care Team Description 04/25/2025 4:00 PM EDT Office Visit Adult Medicine [address] [phone] [place] Annual physical exam (Primary Dx); Refused pneumococcal vaccine; Vitamin D deficiency 03/17/2025 8:00 AM EDT - 03/17/2025 11:59 PM EDT Hospital Encounter Radiology Department [address] [phone] Cirrhosis of liver without ascites, unspecified hepatic cirrhosis type (CMS/HCC V24, CMS/HCC V28) Discharge Disposition: Home or Self Care 03/16/2025 9:45 AM EDT Office Visit Adult Medicine [address] [phone] Daisy Milian MD Acute midline low back pain without sciatica (Primary Dx); Ledezma's esophagus without dysplasia; Cirrhosis of liver without ascites, unspecified hepatic cirrhosis type (CMS/HCC V24, CMS/HCC V28) from Last 3 Months Immunizations Immunization Administration Dates Next Due Hepatitis B (Xrzetxb-R-Ucnqf , Recombivax HB-Adult) 19yo and older 10/17/2010,05/23/2010,04/18/2010 Influenza Quadravalent, MDCK , 0.5ml, preservative free (Flucelvax) 6mo and older 07/02/2022,08/02/2021,05/13/2019 Influenza trivalent, with pr eservative (Fluzone; Afluria) 6mo and older 04/28/2020,05/12/2018 Moderna SARS-CoV-2 COVID-19, mRNA, LNP-S, preservative free 01/31/2021,01/03/2021 Pneumococcal polysaccharide 23 valent (Pneumovax 23) 2yo and older 12/26/2021 Tdap Tetanus diptheria acell ular pertussis (Boostrix; Adacel) 7yo and older 01/08/2017,12/15/2006 Zoster recombinant (Shingrix ) 19yo and older 10/13/2024 Surgical History Surgery Date Site/Laterality Comments TONSILLECTOMY 08/18/1999 - 08/17/2000 PROCEDURE: HISTORICAL TONSILLECTOMY ESOPHAGOGASTRODUODENOSCOPY 07/28/2009 COMMENT: Ledezma's esophagus without dysplasia and hiatus hernia. Repeat in two years. OTHER SURGICAL HISTORY turbinoplasty COLONOSCOPY 07/07/2024 tubular adenoma; EGD ledezma esophagus Medical History Medical History Date Comments Bipolar affective disorder ( [facility] V24, [facility] V28) 06/27/2017 With [facility] Depression 11/26/2017 Esophageal reflux 08/14/2006 Hypercholesteremia 03/21/2018 Obstructive sleep apnea 08/14/2006 on CPAP Ledezma's esophagus Q 3 yrs EGD, last EGD 06/22/2018 Varices, gastric Family History Medical History Relation Name Comments Asthma Father AVR Heart attack Maternal Grandfather Arthritis Mother cervical cancer (??abnormal PAP) Lung cancer Paternal Grandfather fatal a t 61 years, +smoker Arthritis Paternal Grandmother Relation Name Status Comments Father Alive Maternal Grandfather Maternal Grandmother Mother Alive Paternal Grandfather Paternal Grandmother Social History Tobacco Use Types Packs/Day Years Used Date Smoking Tobacco: Every Day Cigarettes Smokeless Tobacco: Former Comments:Started age 14; max 1 PPD Alcohol Use Standard Drinks/Week Comments Not Currently 0 (1 standard drink = 0.6 oz pur e alcohol) 3-4 drinks per day Housing Instability Answer Date Recorde d Are you worried that in the next 2 months you may not have stable housing? No 04/25/2025 Food Access & Nutrition Answer Date Rec orded Do you have access to a vari ety of food including fruits and vegetables? Yes 04/25/2025 Access to Healthcare Answer Date Record ed Within the last 3 months, ho w many times did you visit the emergency department for your medical care? 0 04/25/2025 Health Literacy Answer Date Recorded How often do you need to hav e someone help you when you read instructions, pamphlets, or other written material from your doctor or pharmacy? Never 04/25/2025 Caregiver: How often do you need to have someone help you when you read instructions, pamphlets, or other written material from your doctor or pharmacy? Not on file 04/25/2025 Financial Risk Answer Date Recorded How hard is it for you to pa y for the very basics like food, housing, medical care, and air conditioning / heating? Not very hard 04/25/2025 Transportation Answer Date Recorded Has the lack of transportati on kept you from meetings, work, or from getting things needed for daily living? No Has the lack of transportati on kept you from medical appointments or from getting medications? No 04/25/2025 Social Isolation Answer Date Recorded How often do you feel lonely or isolated from th ose around you? Never 04/25/2025 Food Risk Answer Date Recorded Within the past 12 months we worried whether our food would run out before we got money to buy more. Never true 04/25/2025 Within the past 12 months th e food we bought just didn't last and we didn't have money to get more. Never true 04/25/2025 Dependent Care Answer Date Recorded Do you need help finding or paying for care for your loved ones. For example, early childhood aide classroom or elderly care for an older adult? No 04/25/2025 Education Answer Date Recorded Do you think completing more education or training, like finishing a GED, going to college, or learning a trade, would be helpful for you? No 04/25/2025 Employment and Income Answer Date Recor ded During the last four weeks, have you been actively looking for work? No 04/25/2025 Living Situation Answer Date Recorded What is your living situation? Unrecognized valu e 04/25/2025 Interpersonal Safety Answer Date Record ed Physical Abuse Unrecognized value 07/08/2024 Verbal Abuse Unrecognized value 07/08/2024 Education Answer Date Recorded What is the highest level of school you have completed or the highest degree you have received? 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 Not on file Not on file Not on file Obstetrics History Last Filed Vital Signs Vital Sign Reading Time Taken Comments Blood Pressure 128/78 04/25/2025 4:05 PM EDT Pulse 100 04/25/2025 4:05 PM EDT Temperature 36.4 C (97.5 F) 04/25/2025 4:05 PM EDT Respiratory Rate 18 04/25/2025 4:05 PM EDT Oxygen Saturation 95% 04/25/2025 4:05 PM EDT Inhaled Oxygen Concentration - - Weight 117 kg (257 lb) 04/25/2025 4:05 PM EDT Height 182.9 cm (6') 04/25/2025 4:05 PM EDT Body Mass Index 34.86 04/25/2025 4:05 PM EDT Plan of Treatment Upcoming Encounters Date Type Department Care Team (Late st Contact Info) Description 10/26/2025 8:45 AM EDT Office Visit Adult Medicine [facility] [address], [place] [phone] Daisy Milian MD [address], [place] Health Maintenance Due Date Last Done Comments Hepatitis A Vaccines (1 of 2 - Risk 2-dose series) 1991 Lung Cancer Screening (Low Dose CT) 07/27/2022 Pneumococcal Vaccine: 50+ Years (2 of 2 - PCV) 12/26/2022 12/26/2021 COVID-19 Vaccine ( - season) 2025 08/26/2021, 01/31/2021, 01/03/2021 Influenza Vaccine (#1) 2025 , 08/02/2021, 04/28/2020, Additional history exists Social Influencers of Health Screening 04/25/2026 04/25/2025 DTaP,Tdap,and Td Vaccines (3 - Td or Tdap) 01/08/2027 01/08/2017, 12/15/2006 Colorectal Cancer Screening: Colonoscopy 07/08/2029 07/08/2024, 06/10/2018, 06/10/2018 Cholesterol Screening (Lipid Panel) 10/07/2029 10/07/2024, 04/08/2024, 04/08/2024, Additional history exists RSV Immunization Adult Patients (1 - 1-dose 75+ series) 2047 Hepatitis B Vaccines Completed 10/17/2010, 05/23/2010, 04/18/2010 HIV Screening Completed 04/08/2024, 04/08/2024 Hepatitis C Screening Completed 04/08/2024 Zoster Vaccines Completed 03/29/2025, 10/13/2024 Depression Screening Completed 04/25/2025, 04/07/20 24 HIB Vaccines Aged Out No longer eligi [...] Procedure Name Priority Date/Time Associated Diagnosis Comments COMPREHENSIVE METABOLIC PANEL Routine 04/25/2025 4:48 PM EDT Annual physical exam COMPLETE BLOOD COUNT Routine 04/25/2025 4:48 PM EDT Annual physical exam VITAMIN D 25 HYDROXY Routine 04/25/2025 4:48 PM EDT Annual physical exam Vitamin D deficiency US ABDOMEN COMPLETE Routine 03/17/2025 8 :30 AM EDT Cirrhosis of liver without ascites, unspecified hepatic cirrhosis type (CMS/HCC V24, CMS/HCC V28) LIPID PANEL WITH REFLEX TO DIRECT LDL Routine 10/07/2024 8:38 AM EST Hypercholesteremia COLONOSCOPY Routine 07/08/2024 11:27 AM EST Colon cancer screening HEPATITIS C SCREENING Routine 04/08/2024 HIV SCREENING Routine 04/08/2024 DEPRESSION SCREENING Routine 04/07/2024 from Last 3 Months or Most Recently Relevant to Health Maintenance Results * (ABNORMAL) Vitamin D 25 hydroxy (04/25/2025 4:48 PM EDT) Pathologist [facility] Vit D, 25-Hydroxy 25.9(L) 30.0 - 80.0 ng/mL LAB CHEMISTRY METHOD 04/25/2025 7:29 PM EDT [facility] Blood Venous blood specimen / Unknown Venipuncture / Unknown 04/25/2025 4:48 PM EDT 04/25/2025 4:48 PM EDT us [place] KAMARA LAB BLOOD ORDERABLES Final Re sult [facility] [address] [place] [address], * (ABNORMAL) Complete blood count (04/25/2025 4:48 PM EDT) [facility] WBC 11.3(H) 4.8 - 10.8 K/mcL LAB HEMETOLOGY METHOD 04/25/2025 6:42 PM EDT [facility] RBC 5.10 4.50 - 5.50 M/[facility] LAB HEMETOLOGY METHOD 04/25/2025 6:42 PM EDT [facility] Hemoglobin 16.1 13.5 - 17.5 g/dL LAB HEMETOLOGY METHOD 04/25/2025 6:42 PM EDT [facility] Hematocrit 49.2 42.0 - 54.0 % LAB HEMETOLOGY METHOD 04/25/2025 6:42 PM EDT [facility] MCV 97.2 79.0 - 98.0 FL LAB HEMETOLOGY METHOD 04/25/2025 6:42 PM EDT [facility] MCH 31.8 27.0 - 32.0 pcg LAB HEMETOLOGY METHOD 04/25/2025 6:42 PM EDT [facility] MCHC 32.7 32.0 - 37.0 g/dL LAB HEMETOLOGY METHOD 04/25/2025 6:42 PM EDT [facility] RDW 11.6 11.0 - 15.0 % LAB HEMETOLOGY METHOD 04/25/2025 6:42 PM EDT [facility] Platelets 299 130 - 400 K/mcL LAB HEMETOLOGY METHOD 04/25/2025 6:42 PM EDT [facility] MPV 10.5 7.0 - 11.0 FL LAB HEMETOLOGY METHOD 04/25/2025 6:42 PM EDT [facility] NRBC 0.0 <1.0 % LAB HEMETOLOGY METHOD 04/25/2025 6:42 PM EDT [facility] NRBC Absolute 0.00 <0.10 K/mcL LAB HEMETOLOGY METHOD 04/25/2025 6:42 PM EDT [facility] Blood Venous blood specimen / Unknown Venipuncture / Unknown 04/25/2025 4:48 PM EDT 04/25/2025 4:48 PM EDT us [place] KAMARA LAB BLOOD ORDERABLES Final Re sult [facility] [address] [place] [address], * Comprehensive metabolic panel (04/25/2025 4:48 PM EDT) Sodium 137 133 - 145 mmol/L LAB CHEMISTRY METHOD 04/25/2025 6:55 PM EDT [facility] Potassium 4.5 3.5 - 5.5 mmol/L LAB CHEMISTRY METHOD 04/25/2025 6:55 PM EDT [facility] Chloride 105 96 - 110 mmol/L LAB CHEMISTRY METHOD 04/25/2025 6:55 PM EDT [facility] CO2 29 21 - 32 mmol/L LAB CHEMISTRY METHOD 04/25/2025 6:55 PM EDT [facility] Anion Gap 3 3 - 11 LAB CHEMISTRY METHOD 04/25/2025 6:55 PM [facility] Glucose 86 70 - 100 mg/dL LAB CHEMISTRY METHOD 04/25/2025 6:55 PM [facility] BUN 15 5 - 25 mg/dL LAB CHEMISTRY METHOD 04/25/2025 6:55 PM [facility] Creatinine 0.96 0.70 - 1.30 mg/dL LAB CHEMISTRY METHOD 04/25/2025 6:55 PM [facility] eGFR 95 >=60 mL/min/1. 73m2 LAB CHEMISTRY METHOD 04/25/2025 6:55 PM [facility] Comment:Calculation based on the Chronic Kidney Disease Epidemiology Collaboration (CKD-EPI) equation refit without adjustment for race. BUN/Creatinine Ratio 15.6 LAB CHEMISTRY METHOD 04/25/2025 6:55 PM [facility] Calcium 9.5 8.5 - 10.5 mg/dL LAB CHEMISTRY METHOD 04/25/2025 6:55 PM [facility] AST (SGOT) 29 10 - 42 unit/L LAB CHEMISTRY METHOD 04/25/2025 6:55 PM [facility] ALT (SGPT) 43 10 - 60 unit/L LAB CHEMISTRY METHOD 04/25/2025 6:55 PM [facility] Alkaline Phosphatase 106 42 - 121 unit/L LAB CHEMISTRY METHOD 04/25/2025 6:55 PM [facility] Total Protein 7.5 6.0 - 8.0 g/dL LAB CHEMISTRY METHOD 04/25/2025 6:55 PM [facility] Albumin 4.4 3.2 - 5.0 g/dL LAB CHEMISTRY METHOD 04/25/2025 6:55 PM [facility] Total Bilirubin 0.6 0.0 - 1.4 mg/dL LAB CHEMISTRY METHOD 04/25/2025 6:55 PM [facility] Blood Venous blood specimen / Unknown Venipuncture / Unknown 04/25/2025 4:48 PM EDT 04/25/2025 4:48 PM EDT us [place] KAMARA LAB BLOOD ORDERABLES Final Re sult [facility] ([facility]) [facility] [address] [place] [address], [place] [phone] * US Abdomen Complete (03/17/2025 8:30 AM EDT) Anatomical Region Laterality Modality Body Ultrasound 03/17/2025 10:3 1 AM EDT Impressions 03/17/2025 10:36 AM EDT Hepatic steatosis. -------- FINAL REPORT -------- Dictated By: Tonya Alexander Dictated Date: 03/17/2025 10:31 ET Assigned Physician: Tonya Alexander Reviewed and Electronically Signed By: Tonya Alexander Signed Date: 03/17/2025 10:36 ET Workstation ID: [id number] Transcribed By: Self Edit Transcribed Date: 03/17/2025 10:31 ET Narrative 03/17/2025 10:36 AM EDT ABDOMINAL ULTRASOUND History: Cirrhosis. Comparison: None. FINDINGS: There is no evidence of cholelithiasis. The common bile duct is not dilated, measuring 3 mm. The gallbladder wall is not thickened. No pericholecystic fluid is seen. No ascites are seen. The pancreas is obscured by overlying bowel gas. The liver measures 19.1 cm in length and demonstrates increased echotexture. No focal lesions are seen in the liver and there is no evidence of intrahepatic ductal dilation. Normal hepatopedal flow is seen in the main portal vein. No evidence of hydronephrosis, mass, or calculus was seen in either kidney. The right kidney measures 13.2 cm in greatest length. The left kidney measures 11.7 cm in length. The spleen measures 9.4 cm in length. The visualized abdominal aorta and IVC are unremarkable. Procedure Note oTnya Alexander MD - 03/17/2025 ABDOMINAL ULTRASOUND History: Cirrhosis. Comparison: None. FINDINGS: There is no evidence of cholelithiasis. The common bile duct isnot dilated, measuring 3 mm. The gallbladder wall is not thickened. Nopericholecystic fluid is seen. No ascites are seen. The pancreas is obscured by overlying bowel gas. The liver measures 19.1 cm in length and demonstrates increasedechotexture. No focal lesions are seen in the liver and there is noevidence of intrahepatic ductal dilation. Normal hepatopedal flow is seenin the main portal vein. No evidence of hydronephrosis, mass, or calculus was seen in eitherkidney. The right kidney measures 13.2 cm in greatest length. The leftkidney measures 11.7 cm in length. The spleen measures 9.4 cm in length. The visualized abdominal aorta and IVC are unremarkable. IMPRESSION: Hepatic steatosis. -------- FINAL REPORT -------- Dictated By: Tonya Alexander Dictated Date: 03/17/2025 10:31 ET Assigned Physician: Tonya Alexander Reviewed and Electronically Signed By: Tonya Alexander Signed Date: 03/17/2025 10:36 ET Workstation ID: [id number] Transcribed By: Self Edit Transcribed Date: 03/17/2025 10:31 ET us Daisy Milian MD [facility] US PROCEDURES Final Result * Lipid panel with reflex to direct LDL (10/07/2024 8:38 AM EST) Cholesterol 147 0 - 200 mg/dL LAB CHEMISTRY METHOD 10/07/2024 10:23 AM [facility] Triglycerides 105 0 - 150 mg/dL LAB CHEMISTRY METHOD 10/07/2024 10:23 AM [facility] HDL 47 >=40 mg/dL LAB CHEMISTRY METHOD 10/07/2024 10:23 AM [facility] LDL Calculated 79 0 - 100 mg/dL LAB CHEMISTRY METHOD 10/07/2024 10:23 AM [facility] VLDL Cholesterol Diego 21 mg/dL LAB CHEMISTRY METHOD 10/07/2024 10:23 AM EST [facility] Non HDL Chol. (LDL+VLDL) 100 <145 mg/dL LAB CHEMISTRY METHOD 10/07/2024 10:23 AM EST [facility] Chol/HDL Ratio 3.1 0.0 - 4.4 LAB CHEMISTRY METHOD 10/07/2024 10:23 AM EST [facility] Blood Venous blood specimen / Unknown Venipuncture / Unknown 10/07/2024 8:38 AM EST 10/07/2024 8:38 AM EST us Tonie KAMARA LAB BLOOD ORDERABLES Final Resul t [facility] [address] [place] [address], [place] [phone] * COLONOSCOPY Anesthesia - MAC; [facility] ENDOSCOPY (07/08/2024 11:27 AM EST) Anatomical Region Laterality Modality Endoscopy 07/08/2024 11:0 0 AM EST Impressions 07/08/2024 11:32 AM EST - One 3 mm polyp in the transverse colon, removed with a cold snare. Resected and retrieved. - Internal hemorrhoids. Recommendation: - Await pathology results. - Repeat colonoscopy in 5 years for surveillance. Narrative 07/08/2024 11:32 AM EST [facility] Patient Name: Maulik Harley Procedure Date: [...] verified by the physician, the nurse, the cellar pumper and the geotechnical laboratory technician in the pre-procedure area in the [...] reduce spontaneously). Procedure Code(s): --- Professional --- 83226, Colonoscopy, flexible; with removal of tumor(s), polyp(s), or other lesion(s) by snare technique Diagnosis Code(s): --- Professional --- D12.3, Benign neoplasm of transverse colon (hepatic flexure or splenic flexure) CPT copyright 2020 [employer]. All rights reserved. The codes documented in this report are preliminary and upon shuffle board operator review may be revised to meet current compliance requirements. Herb Bo MD 07/08/2024 11:32:15 AM This report has been signed electronically.Herb Bo MD Number of Addenda: 0 Note Initiated On: 07/08/2024 11:00 AM Scope Withdrawal Time: 0 hours 6 minutes 51 seconds Scope In: 11:05:37 AM Scope Out: 11:15:23 AM Endoscopy Department at [facility] - [address] [place] [phone] Procedure Note Herb Bo MD - 07/08/2024 [facility] GI Patient Name: Maulik Harley Procedure Date: [...] the physician, the nurse, theanesthetist and the geotechnical laboratory technician in the pre-procedure area in the [...] reduce spontaneously). Procedure Code(s): --- Professional --- 41615, Colonoscopy, flexible; with removal of tumor(s), polyp(s), or other lesion(s) by snare technique Diagnosis Code(s): --- Professional --- D12.3, Benign neoplasm of transverse colon (hepatic flexure or splenic flexure) CPT copyright 2020 [employer]. All rights reserved. The codes documented in this report are preliminary and upon shuffle board operator reviewmay be revised to meet current compliance requirements. Herb Bo MD 07/08/2024 11:32:15 AM This report has been signed electronically.Herb Bo MD Number of Addenda: 0 Note Initiated On: 07/08/2024 11:00 AM Scope Withdrawal Time: 0 hours 6 minutes 51 seconds Scope In: 11:05:37 AM Scope Out: 11:15:23 AM Endoscopy Department at [facility] - [address] [place] [phone] IMPRESSION: - One 3 mm polyp in the transverse colon, removed with a cold snare. Resected and retrieved. - Internal hemorrhoids. Recommendation: - Await pathology results. - Repeat colonoscopy in 5 years for surveillance. us Herb Bo MD GI~PROCEDURE ORDERABLES Fin al Result * HIV Screening (04/08/2024) HIV Screening abstracted us Historical Provider HEALTH MAINTENANCE Final Result * Hepatitis C Screening (04/08/2024) Hepatitis C Screening abstracted Historical Provider HEALTH MAINTENANCE Final Result * Depression Screening (04/07/2024) Depression Screening abstracted Historical Provider HEALTH MAINTENANCE Final Result from Last 3 Months or Most Recently Relevant to Health Maintenance Insurance [facility] [employer] Care Teams Stone Sawyer Relationship Specialty Start Date End Date Daisy Milian MD [address] [place] [phone] PCP - General Internal Medicine 06/28/21
--- OUTSIDE RECORDS SUMMARY | 2025-05-20 10:10 | XMS_ITS | Patient Health Record ---
Author Organization [facility] Address [address] [place] [address] Care Team Providers Care Studio Owner Name Role Phone UNKNOWN, PROVIDER Primary Care Provider Brandan ACOSTA, Roro Eddy [phone] Medications Medication SIG (Take, Route, Frequency, Duration) [...] >5 cups per day Occupation: Owns an [employer] Diet: Eats healthier a t home, [employer] for lunch Alcohol: 2- drinks per ni ght. Lives with: , 1 year old son, 9 year old son (shared custody) Section Notes: 05/2015-smoking 1-1.5 PPD 05/2015-smoking 1-1.5 PPD 05/2015-smoking 1-1.5 PPD 05/2015-smoking 1-1.5 PPD Problems Problem Type SNOMED Code ICD Code Onset Dates Problem Status W/U Status Risk Notes Problem Obesity (986238894) Obesity (E66.9) Active confirmed pt has lost siginficant amount of weight, intentionally Problem Obstructive sleep apnea syndrome (20113393) Obstructive sleep apnea syndrome (G47.33) Active confirmed [...] repeat PSG, etc Problem Dietary management surveillance (001325383) Dietary counseling and surveillance (Z71.3) Active confirmed Problem Chronic rhinitis (84025755) Chronic rhinitis (J31.0) Active confirmed this is probably in large part due to smoking Problem Bipolar disorder (39468599) Bipolar disorder (F31.9) Active confirmed Problem Marrero's esophagus (716127759) Marrero's esophagus (K22.70) Active confirmed Problem Tobacco use (826627426) Tobacco use disorder (Z72.0) Active confirmed pt [...] Insured Coverage Start Date Coverage End Date [address] [address] [id number] HarleyMaulik rubio Self - patient is the insured Medical (General) History Medical History History ICD Code Bipolar affective disorder Psychiatrist Dr. Camacho Marrero's esophagus (last EGD 08/2012) Reflux DANNA on CPAP at 12. ENT Dr[address] Kaminski Surgical History Surgery Date(Month/Year) nasal turbinoplasty 2011 perianal abscess I&D 02/27 Hospitalization History Reason Date(Month/Year) Pericarditis x 2 (2005 and )
--- OUTSIDE RECORDS SUMMARY | 2025-05-20 10:10 | XMS_ITS ---
Author Name [facility] Organization Unknown Care Team Organization Name Specialty Phone Email Start Date End Da te [facility] Daisy Milian Primary Care 01/24/2023 [facility] KLEVER Primary Care 06/25/2022 04/05/2024
--- OUTSIDE RECORDS SUMMARY | 2025-05-20 10:10 | XMS_ITS | Clinical Summary ---
Author Organization [facility] Address [address] [place] [address] Care Team Providers Care Lithographic Proofer Name Role Phone Unavailable Primary Care Provider [...] Vaccine (1 of 2) 2022 COVID-19 Vaccine (1 - 2023- season) 2025
== END 2025-05-20 09:51 | disposition home or self-care (01) ==
LOC: HO.HPS 09:26
PROVIDERS: PCP Internal Medicine; Referring Provider Internal Medicine; Visit Provider Physician Assistant Medical
DX: F17.210 Nicotine dependence, cigarettes, uncomplicated (principal)
CPT/HCPCS: G0296

== ENCOUNTER 2025-05-20 09:58 | Outpatient (REF) | payer OTHER, SELFPAY ==
--- NOTE | ~2025-05-20 | CT_ITS ---
CLINICAL HISTORY: F17.210 - Nicotine dependence, cigarettes, uncomplicated CT lung cancer screening (LDCT) Comparison: None provided Technique: Axial CT images of the chest using low-dose technique. Referring provider counseled the patient on shared decision-making for LDCT screening. Additional counseling was provided on smoking cessation. Effective radiation dose total: DLP 73 mGycm, CTDIvol 1.9 mGy. Findings: Lung: Scattered 1-2 mm pulmonary nodules. Apical predominant emphysematous change. No dense consolidation, pleural effusion or pneumothorax. Trachea and central bronchi are patent. Coronary artery calcifications: None. Normal heart size. No pericardial effusion or adenopathy. Decompressed esophagus with small hiatal hernia. No chest wall lesions or axillary adenopathy. Unremarkable thyroid. Limited upper abdomen: Unremarkable Other: No acute osseous findings. IMPRESSION: Lung rads category 2. No acute cardiopulmonary disease. This document has been electronically signed by: Roxann Cantu MD on 05/21/2025 09:32:32
--- OUTSIDE RECORDS SUMMARY | 2025-05-20 10:44 | XMS_ITS | Patient Health Record ---
Author Organization [facility] Address [address] [place] [address] Care Team Providers Care Outbound Telemarketing Representative Name Role Phone Mushtaq Vo Unavailable [phone] Reason For Referral No Information Plan Of Treatment No Information
== END 2025-05-20 09:59 | disposition home or self-care (01) ==
LOC: HO.CT 09:58
PROVIDERS: PCP Internal Medicine; Visit Provider Physician Assistant Medical
DX: Z12.2 Encounter for screening for malignant neoplasm of respiratory organs (principal); F17.210 Nicotine dependence, cigarettes, uncomplicated
CPT/HCPCS: 71271; G0296

== ENCOUNTER → 2025-05-20 09:59 | Outpatient (BNV) | payer OTHER, SELFPAY | PROVIDERS: PCP Internal Medicine; Visit Provider Radiology Diagnostic Radiology | DX: F17.210 Nicotine dependence, cigarettes, uncomplicated (principal) | CPT/HCPCS: 71271 ==

== ENCOUNTER 2025-05-29 21:49 | Emergency (ER) | payer OTHER, SELFPAY ==
[2025-05-29 22:07] VITALS: BP 123/79; PULSE 94; RESP 18; TEMP 36.6; O2SAT 96; BMI 33.9
[2025-05-29 22:23] LABS: MANUAL DIFF FLAG NO
[2025-05-29 22:24] LABS: Hematocrit 45.7 % (42.0-52.0); Hemoglobin 15.4 g/dl (14.0-18.0); Imm Gran Abs Auto 0.12 X10*3/uL (0.00-0.03); Imm Gran Pct Auto 0.8 % (0.0-0.4); Lymphocytes Absolute Auto 2.0 X10*3/uL (1.2-4.9); Mean Corpuscular HGB Conc 33.7 g/dl (31.0-36.0); Mean Corpuscular Hemoglobin 31.6 pg (27.0-33.0); Mean Corpuscular Volume 93.6 fL (80.0-98.0); NRBC Abs Auto 0.000 X10*3/uL (0.0-0.012); NRBC Pct Auto 0.0 /100WBC (0.0-0.2); Platelet Count 303 X10*3/uL (160-400); Red Blood Count 4.88 X10*6/uL (4.60-5.80); White Blood Count 15.0 X10*3/uL (4.8-10.8)
[2025-05-29 22:44] LABS: Alanine Aminotransferase 35 U/L (0-40); Albumin Level 4.7 g/dL (3.5-5.0); Alkaline Phosphatase 92 U/L (39-117); Anion Gap 16 (12-20); Aspartate Amino Transferase 30 U/L (5-37); Blood Urea Nitrogen 14 mg/dL (9-16); Calcium 9.5 mg/dL (8.4-10.2); Carbon Dioxide 22 mmol/L (22-29); Chloride 107 mmol/L (96-108); Creatinine Clr Calc Pharmacy 123.4; Estimated Glomerular Filt Rate > 60; Potassium 3.7 mmol/L (3.3-5.1); Sodium 141 mmol/L (135-145); Total Protein 7.1 g/dL (6.5-8.0)
--- OUTSIDE RECORDS SUMMARY | 2025-05-29 23:04 | XMS_ITS | Patient Health Record ---
Author Organization [facility] Address [address] [place] [address] Care Team Providers Care Machine Hamper Maker Name Role Phone Mushtaq Vo Unavailable [phone] Reason For Referral No Information Plan Of Treatment No Information
--- OUTSIDE RECORDS SUMMARY | 2025-05-29 23:04 | XMS_ITS | Patient Health Record ---
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 Lives with: , 1 year old son, 9 year old son (shared custody) Section Notes: 05/2015-smoking 1-1.5 PPD 05/2015-smoking 1-1.5 PPD 05/2015-smoking 1-1.5 PPD 05/2015-smoking 1-1.5 PPD Problems Problem Type SNOMED Code ICD Code Onset Dates Problem Status W/U Status Risk Notes Problem Obesity (766293053) Obesity (E66.9) Active confirmed pt has lost siginficant amount of weight, intentionally Problem Obstructive sleep apnea syndrome (39334779) Obstructive sleep apnea syndrome (G47.33) Active confirmed [...] repeat PSG, etc Problem Dietary management surveillance (429423363) Dietary counseling and surveillance (Z71.3) Active confirmed Problem Chronic rhinitis (88141947) Chronic rhinitis (J31.0) Active confirmed this is probably in large part due to smoking Problem Bipolar disorder (70842382) Bipolar disorder (F31.9) Active confirmed Problem Marrero's esophagus (757771394) Marrero's esophagus (K22.70) Active confirmed Problem Tobacco use (625663739) Tobacco use disorder (Z72.0) Active confirmed pt [...] Coverage Start Date Coverage End Date [address] [address] [id number] CricketNasimMaulik Self - patient is the insured Medical (General) History Medical History History ICD Code Bipolar affective disorder Psychiatrist Dr. Camacho Marrero's esophagus (last EGD 08/2012) Reflux DANNA on CPAP at 12. ENT Dr[address] Kaminski Surgical History Surgery Date(Month/Year) perianal abscess I&D 02/27 nasal turbinoplasty 2011 Hospitalization History Reason Date(Month/Year) Pericarditis x 2 (2005 and )
--- OUTSIDE RECORDS SUMMARY | 2025-05-29 23:04 | XMS_ITS | Clinical Summary ---
Author Organization [facility] Address [address] [place] [address] Care Team Providers Care Econometrics Professor Name Role Phone Unavailable Primary Care Provider [...]
--- NOTE | 2025-05-29 23:10 | ED.GENADULT ---
[facility] - General Adult General Chief complaint: Abdominal Pain Stated complaint: abd pain, vomiting Time Seen by Provider: 05/29/25 23:03 Source: patient Mode of arrival: ambulatory Limitations: no limitations History of Present Illness ED Provider: Dr. Carrington [facility] narrative: 55-year-old male presented hospital today for abdominal pain and diarrhea that started this morning. Patient has had some oysters and sushi yesterday. However woke up this morning has some food and has sudden onset of continuous diarrhea. Patient stated that he has been having rectal pain from the consistent diarrhea and nausea and vomiting. Denies any fever. He stated that he feels his belly is bloated. Related Data Home Medications ?Medication ?Instructions ?Recorded ?Confirmed atorvastatin 20 mg tablet 20 mg PO QPM 02/02/25 lamotrigine 200 mg tablet 500 mg PO QAM 02/02/25 omeprazole 20 mg capsule,delayed 20 mg PO DAILY 02/02/25 release Previous Rx's ?Medication ?Instructions ?Recorded azithromycin 500 mg tablet See Rx Instructions PO .COMPLEX #3 05/30/25 tabs loperamide 2 mg capsule (Imodium 2 mg PO Q6H PRN loose stool 10 05/30/25 A-D) days #20 caps ondansetron 4 mg disintegrating 4 mg PO Q8H PRN nausea and 05/30/25 tablet vomiting #14 tabs Allergies Allergy/AdvReac Type Severity Reaction Status Date / Time No Known Allergies Allergy Verified 05/29/25 22:09 Review of Systems Review of Systems: Pertinent review of systems as mentioned in HPI. All other system otherwise negative. COUNT INCLUDES THE [facility] Past Medical History COUNT INCLUDES THE [facility] Narrative: Medical history as mentioned in [facility] Medical History (Updated 05/30/25 @ 01:18 by Nory Carrington DO) Obesity (BMI 30-39.9) Nicotine dependence, cigarettes, uncomplicated COPD (chronic obstructive pulmonary disease) DANNA on CPAP Surgical History (Updated 05/20/25 @ 09:45 by Susan Galvin PA-C) History of colonoscopy History of turbinectomy History of tonsillectomy History of esophagogastroduodenoscopy (EGD) Family History Family History (Updated 05/20/25 @ 09:43 by Susan Galvin PA-C) Paternal Grandfather Lung cancer Father Bicuspid aortic valve Social History Social History (Updated 05/20/25 @ 09:41 by Susan Galvin PA-C) Alcohol intake: current Alcohol intake frequency: 0-2 drinks per day Alcohol type: hard liquor Patient Tobacco Use Status: Current everyday Tobacco user Cigarette Packs Per Day: 1 Cigarettes Per Day: 20 Years Smoked: (onset 14yo, 1ppd x 41yrs, 40pyh) Smoked in Last 30 Days: Yes Use of substances other than those prescribed or required for medical reasons: No Advance Directives: No Advance Directives Information Provided: No Physical Exam ED Exam Exam: General: Pleasant, no distress, interacting appropriately Head: Normacephalic, atraumatic ENT: oral mucosa moist, neck supple, no tracheal deviation Cardiovascular: regular rate, regular rhythm, no murmurs, rubbing, gallops Respiratory: CTAB, no wheeze, rales, rhonchi Gastrointestinal: Mildly distended abdomen, right flank pain on palpation Extremities: No limb pain or swelling, no calf tenderness Neurological: Awake and alert, no facial droop noted Skin: Warm and dry Psychiatric: Appropriate mood and thoughts Vital Signs: Vital Signs - 24 hr 05/29/25 22:07 05/29/25 23:41 Temperature 97.9 F 97.9 F Pulse Rate 94 85 Respiratory Rate 18 18 Blood Pressure 123/79 109/69 Pulse Oximetry 96 97 Oxygen Delivery Method Room Air Room Air BMI result Body Mass Index 33.9 Medications Administered Discontinued Medications Generic Name Dose Route Start Last Admin Trade Name Freq PRN Reason Stop Dose Admin Azithromycin 500 mg 05/29/25 23:14 05/29/25 23:39 Azithromycin 500 Mg Tablet PO 05/29/25 23:15 500 mg ONCE ONE Administration Sodium Chloride 1,000 mls @ 999 mls/hr 05/29/25 23:15 05/30/25 00:18 Ns IV 05/30/25 00:15 Infused .Q1H1M RISHI Infusion Loperamide HCl 6 mg 05/29/25 23:14 05/29/25 23:39 Loperamide Hcl 2 Mg Capsule PO 05/29/25 23:15 6 mg ONCE ONE Administration Ondansetron HCl 4 mg 05/29/25 23:14 05/29/25 23:39 Ondansetron Hcl 4 Mg/2 Ml Vial IVPUSH 05/29/25 23:15 4 mg ONCE ONE Administration Medical Decision Making Medical Decision Making MDM Narrative: 55-year-old male presented hospital today for evaluation of right-sided flank pain. Patient does have leukocytosis 15. Likely reactive to his diarrhea and nausea and vomiting. Patient has electrolytes are normal limit. Bilirubin is not elevated. Patient does not have isolated right upper quadrant tenderness. I do not think this is cholecystitis. His pain is mostly on the lateral aspect of the right flank. Patient will be given IV fluid, IV Zofran. Reassess. Imodium will be provided the patient. Doses azithromycin will be given to the patient as well. I did perform a sepsis focused exam. I do not think patient has sepsis. On reassessment patient states he is feeling better. Patient is able to ambulate without any issues. Diarrhea has improved. We will plan to discharge patient with a Imodium to take. P.o. Zofran will be prescribed to the patient as well. We will discharge him with a course of Z-Vish to take for potential infectious diarrhea. Return precautions provided the patient. He agrees and understands this plan. Differential Diagnosis Differential Diagnoses: The differential diagnosis associated with the presentation includes Infectious diarrhea, gastroenteritis, gastritis, cholecystitis Lab Data MDM Lab Attestation statement: I reviewed the patient's lab results. 05/29/25 22:17 05/29/25 22:18 Labs: Lab Results 05/29/25 05/29/25 Range/Units 22:17 22:18 WBC 15.0 H (4.8-10.8) X10*3/uL RBC 4.88 (4.60-5.80) X10*6/uL Hgb 15.4 (14.0-18.0) g/dl Hct 45.7 (42.0-52.0) % MCV 93.6 (80.0-98.0) fL MCH 31.6 (27.0-33.0) pg MCHC 33.7 (31.0-36.0) g/dl RDW 11.5 (11.0-16.0) % Plt Count 303 (160-400) X10*3/uL MPV 9.7 (9.4-12.4) fL Immature Gran % (Auto) 0.8 H (0.0-0.4) % Neut % (Auto) 73.5 H (45-73) % Lymph % (Auto) 13.5 L (20-40) % Russell % (Auto) 9.4 (2-11) % Eos % (Auto) 2.3 (0-4) % Baso % (Auto) 0.5 (0-2) % Lymph # (Auto) 2.0 (1.2-4.9) X10*3/uL Russell # (Auto) 1.4 H (0.1-1.2) X10*3/uL Eos # (Auto) 0.4 (0.0-0.4) X10*3/uL Baso # (Auto) 0.1 (0.0-0.2) X10*3/uL Abs Immat Gran (auto) 0.12 H (0.00-0.03) X10*3/uL Absolute Neuts (auto) 11.0 H (2.0-8.3) x10*3/uL Absolute Nucleated RBC 0.000 (0.0-0.012) X10*3/uL Nucleated RBC % (auto) 0.0 (0.0-0.2) /100WBC Sodium 141 (135-145) mmol/L Potassium 3.7 (3.3-5.1) mmol/L Chloride 107 (96-108) mmol/L Carbon Dioxide 22 (22-29) mmol/L Anion Gap 16 (12-20) BUN 14 (9-16) mg/dL Creatinine 0.90 (0.5-1.4) mg/dL Estim Creat Clear Calc 123.4 Estimated GFR > 60 Random Glucose 133 H (60-115) mg/dL Calcium 9.5 (8.4-10.2) mg/dL Total Bilirubin 0.6 (0.0-1.0) mg/dL AST 30 (5-37) U/L ALT 35 (0-40) U/L Alkaline Phosphatase 92 (39-117) U/L Total Protein 7.1 (6.5-8.0) g/dL Albumin 4.7 (3.5-5.0) g/dL Discharge Plan Discharge Clinical Impression: Gastroenteritis Patient Disposition: Home, Self-Care Instructions: Gastroenteritis (ED) Prescriptions: New ondansetron 4 mg tablet,disintegrating 4 mg PO Q8H PRN (Reason: nausea and vomiting) Qty: 14 0RF loperamide [Imodium A-D] 2 mg capsule 2 mg PO Q6H PRN (Reason: loose stool) 10 Days Qty: 20 0RF azithromycin 500 mg tablet See Rx Instructions .ROUTE .COMPLEX Qty: 3 0RF Rx Instructions: For 500 mg dose pack: take 500 mg once daily for 3 days No Action atorvastatin 20 mg tablet 20 mg PO QPM lamotrigine 200 mg tablet 500 mg PO QAM omeprazole 20 mg capsule,delayed release(DR/EC) 20 mg PO DAILY Print Language: Romansh
[2025-05-29 23:41] VITALS: BP 109/69; PULSE 85; RESP 18; TEMP 36.6; O2SAT 97
[2025-05-30 01:30] VITALS: BP 110/74; PULSE 91; RESP 18; TEMP 36.9; O2SAT 94
== END 2025-05-30 01:32 | disposition home or self-care (01) ==
PROVIDERS: Emergency Provider Student in an Organized Health Care Education/Training Program; PCP Internal Medicine
DX: K52.9 Noninfective gastroenteritis and colitis, unspecified (principal); K62.89 Other specified diseases of anus and rectum; R11.2 Nausea with vomiting, unspecified
CPT/HCPCS: 36415; 80053; 85025; 96361; 96374; 99284; 99285; J2405

== ENCOUNTER 2025-06-29 15:54 | Outpatient (AMB) | payer OTHER, SELFPAY ==
[2025-06-29 16:06] VITALS: BP 130/72; PULSE 77; O2SAT 96; BMI 35.4
--- NOTE | 2025-06-29 16:06 | MHC.OFFVIS ---
Vital Signs 06/29/25 16:06 Height 6 ft Weight 261 lb BMI 35.4 BP 130/72 Blood Pressure Location Lt brachial Position Sitting Pulse 77 Pulse Source Pulse Oximeter Pulse Oximetry (%) 96 Oxygen Delivery Method Room Air Intake Visit Reasons: copd Intake Note: pt is here for follow up and feeling good, received a new mask, Busboy Required: No Agricultural Inspector: Agricultural Inspector offered & declined Allergies No Known Allergies Allergy (Verified 06/29/25 16:26) Medication List - Last Reconciled 06/29/25 by Michael Jose MD atorvastatin 20 mg PO QPM lamotrigine 500 mg PO QAM loperamide (Imodium A-D) 2 mg PO Q6H PRN 10 days omeprazole 20 mg PO DAILY ondansetron 4 mg PO Q8H PRN Do you need a note to return to daycare/school/sports/work: No HPI HPI copd: Details: This 55 years old gentleman is here for follow-up for the sleep apnea. He does use the CPAP very regularly every night, He feels more comfortable with the new fullface mask ( F-40 ) His machine being almost 5 years old does not transmit the information for compliance, but he does use it 100% of the nights. As far as weight is concerned he has not been able to lose much weight. He is not in any weight management program. He say is if he does not eat he gets bored , so there is some psychological dependent on food.. He also smokes 1 pack of cigarettes a day, again he says that he is dependent on smoking. [facility] Medical History Obesity (BMI 30-39.9) Nicotine dependence, cigarettes, uncomplicated COPD (chronic obstructive pulmonary disease) DANNA on CPAP Surgical History History of colonoscopy History of turbinectomy History of tonsillectomy History of esophagogastroduodenoscopy (EGD) Family History Paternal Grandfather Lung cancer Father Bicuspid aortic valve Social History Alcohol intake: current Alcohol intake frequency: 0-2 drinks per day Alcohol type: hard liquor Patient Tobacco Use Status: Current everyday Tobacco user Cigarette Packs Per Day: 1 Cigarettes Per Day: 20 Years Smoked: (onset 14yo, 1ppd x 41yrs, 40pyh) Review of Systems Const All systems reviewed & are unremarkable except as noted in HPI and below Eyes Reports no additional complaints ENT Reports nasal discharge and Reports nasal obstruction (INTERMITTENT) Card Denies chest pain, Denies syncope, Denies irregular heart rhythm and Denies leg edema Resp Reports as per HPI GI Reports no additional complaints Reports no additional complaints Musc Reports no additional complaints Skin/Breast Reports system reviewed and no additional complaints, except as documented Neuro Reports no additional complaints and Denies syncope Psych Reports no additional complaints Endo Reports no additional complaints Edis/Lymph Reports no additional complaints Aller/Immun Reports no additional complaints Physical Exam Vital Signs: Last Vital Signs Pulse 77 06/29/25 16:06 BP 130/72 06/29/25 16:06 Pulse Ox 96 06/29/25 16:06 Oxygen Delivery Method Room Air 06/29/25 16:06 BMI result Body Mass Index 35.4 Const General: healthy appearing (EXCEPT FOR BEING OVERWEIGHT), comfortable, no acute distress, alert and awake Orientation/consciousness: patient oriented x3 HEENT Head: Yes normal to inspection General nose exam: No nasal polyps present and No nasal discharge present Face and sinus: Yes sinuses nontender Mouth: oropharynx abnormals (STATUS POST TONSILLECTOMY, MALLAMPATI CLASS 3.) Throat: Yes posterior oropharynx normal Eyes General: appearance normal, both eyes and all related structures Neck Other: NECK CIRCUMFERENCE 18 IN Neck: Yes normal visual inspection, Yes no lymphadenopathy, Yes trachea midline and Yes no JVD Thyroid: Thyroid normal Chest Chest palpation & inspection: normal inspection of the chest, normal palpation of entire chest wall and no tenderness Resp Effort & Inspection: normal respiratory effort Auscultation: clear to auscultation bilaterally Cardio Palpation: normal PMI Rate: regular rate Rhythm: regular rhythm Heart sounds: no gallops and no murmurs Peripheral pulses: Peripheral pulses 2+ throughout GI Palpation (GI): Soft to palpation, Tenderness to palpation present (GI), No hepatosplenomegaly present and Palpable mass present Auscultation: normal bowel sounds Back/Spine/Pelvis Thoracic/Lumbar Spine: thoracic and lumbar spine normal to inspection Skin General skin exam: no rashes or lesions noted Neuro General: patient oriented x3 and no focal motor deficits Cranial nerves: Yes CN's II-XII intact bilaterally Extrem General: Yes normal to inspection, Yes no clubbing, cyanosis or edema and Yes no calf tenderness Psych Speech and movement: Normal speech and movement present Assessment & Plan Assessment & Plan (1) DANNA on CPAP: Comment: 03/15/98 sleep study RDI 45 - using CPAP regularly- He has some issues with the current CPAP machine making some noise at night and it is about 4 years old. Still he does use every night and sleeps well. He say is the current fullface mask is more comfortable. Code(s): G47.33 - Obstructive sleep apnea (adult) (pediatric) Category: Medical Plan: Advised to continue using the CPAP every night. (2) COPD (chronic obstructive pulmonary disease): Comment: PFT showed evidence for mild Obstructive Airway Disorder with good response to Bronchodilator -- mild reversable COPD He was supposed to use albuterol HFA. Only p.r.n. However he say is he has not needed it so he has no inhaler on hand. Code(s): J44.9 - Chronic obstructive pulmonary disease, unspecified Category: Medical Plan: He does not need any prescription (3) Nicotine dependence, cigarettes, uncomplicated: Comment: (onset 14yo, 1ppd x 41yrs, 40pyh) Code(s): F17.210 - Nicotine dependence, cigarettes, uncomplicated Category: Medical Plan: Had a good talk with him and I try to convince him that he needs to quit smoking. He is not ready at this time, he will try to cut down the number of cigarettes (4) Obesity (BMI 30-39.9): Comment: He is grossly obese. BMI= 35.4. He say is that he loves his food, . That is the main player. Does not want to join any weight management program . Code(s): E66.9 - Obesity, unspecified Category: Medical Plan: I discussed with him about reducing carbohydrates and increasing the portion of veggies and solids. Coding Level of Care Code Est Pt Level 3 (44643) Diagnoses DANNA on CPAP G47.33 COPD (chronic obstructive pulmonary disease) J44.9 Nicotine dependence, cigarettes, uncomplicated F17.210 Obesity (BMI 30-39.9) E66.9
--- OUTSIDE RECORDS SUMMARY | 2025-06-29 18:52 | XMS_ITS | Patient Health Record ---
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 Lives with: , 1 year old son, 9 year old son (shared custody) Section Notes: 05/2015-smoking 1-1.5 PPD 05/2015-smoking 1-1.5 PPD 05/2015-smoking 1-1.5 PPD 05/2015-smoking 1-1.5 PPD Problems Problem Type SNOMED Code ICD Code Onset Dates Problem Status W/U Status Risk Notes Problem Obesity (664033792) Obesity (E66.9) Active confirmed pt has lost siginficant amount of weight, intentionally Problem Obstructive sleep apnea syndrome (50733580) Obstructive sleep apnea syndrome (G47.33) Active confirmed [...] repeat PSG, etc Problem Dietary management surveillance (592360087) Dietary counseling and surveillance (Z71.3) Active confirmed Problem Chronic rhinitis (76884433) Chronic rhinitis (J31.0) Active confirmed this is probably in large part due to smoking Problem Bipolar disorder (93654061) Bipolar disorder (F31.9) Active confirmed Problem Marrero's esophagus (959225078) Marrero's esophagus (K22.70) Active confirmed Problem Tobacco use (653572976) Tobacco use disorder (Z72.0) Active confirmed pt [...] Insured Coverage Start Date Coverage End Date [address] [address] [phone] [id number] CricketNasimMaulik Self - patient is the insured Medical (General) History Medical History History ICD Code Bipolar affective disorder Psychiatrist Dr. Camacho Marrero's esophagus (last EGD 08/2012) Reflux DANNA on CPAP at 12. ENT Dr[address] Kaminski Surgical History Surgery Date(Month/Year) perianal abscess I&D 02/27 nasal turbinoplasty 2011 Hospitalization History Reason Date(Month/Year) Pericarditis x 2 (2005 and )
--- OUTSIDE RECORDS SUMMARY | 2025-06-29 18:52 | XMS_ITS | Clinical Summary ---
Author Organization [facility] Address [address] [place] [address] Care Team Providers Care Agricultural Engineer Name Role Phone Unavailable Primary Care Provider [...] of 2) 2022 COVID-19 Vaccine (1 - season) 2025 RSV Vaccine 50 years and old er and Patients (1 - 1-dose 75+ series) 2047
--- OUTSIDE RECORDS SUMMARY | 2025-06-29 18:52 | XMS_ITS | Clinical Summary ---
Author Organization [facility] Address [address] [place] [address] Phone Care Team Providers Care Piccolo Mechanic Name Role Phone Daisy Milian MD Primary Care Provider [phone] Allergies No known active allergies Medications miscellaneous [...] 10/11/2024 Active atorvastatin (LIPITOR) 20 mg tablet Take 1 tablet (20 mg total) by mouth at bedtime. 90 tablet 1 05/19/2025 Active Active Problems Problem Noted Date Diagnosed Date Alcoholism ([facility] V24, [facility] V28) 04/25/2025 Ledezma's esophagus 05/27/2024 Overview (04/25/2025): 07/08/24: No dysplasia, repeat in 3 years (Dr. Bo) EGD annually, last EGD 11/2020 no dysplasia Current every day smoker 05/27/2024 Vitamin D deficiency 06/27/2022 Esophageal varices determine d by endoscopy ([facility] V24, [facility] V28) 03/02/2021 Overview (04/25/2025): 12/04/20: Grade I esophageal varices noted at lower third of esophagus on EGD (Dr. Bo) Hepatic steatosis 03/02/2021 Overview (04/25/2025): 09/27/22: Normal Fibrosure Hypercholesteremia 03/21/2018 Obesity (BMI 30-39.9) 03/19/2018 Bipolar affective disorder ([facility] V24, [facility] V28) 06/27/2017 Overview (05/27/2024): With [facility] Esophageal reflux 08/14/2006 Obstructive sleep apnea 08/14/2006 Overview (05/27/2024): [facility] Polysomnogram: Date 03/15/1998; Wt 260#; RDI 45 Central apneas 33; Obstructive apneas 43; Mixed apneas 9; hypopneas 142; average oxygen saturation 95% (lowest 86%). [facility] 05-12-98 CPAP titration: SE:77% CPAP 7-> RDI: 1.0 Min 02 sat 93%, PLMAI: 0 08-02-08 [facility] CPAP trial from the beginning SE 93% SM 93%, sleep latency 3 min REM latency 73 min, 73 min of REM seen but none supine, light snoring only noted, AHI 3.5, PLMAI 0, REM AHI 8.3, CPAP 12 -> AHI 0 Encounters Date Type Department Care Team Description 04/25/2025 4:00 PM EDT Office Visit Adult Medicine [address] [phone] [place] Annual physical exam (Primary Dx); Refused pneumococcal vaccine; Vitamin D deficiency from Last 3 Months Immunizations Immunization Administration Dates Next Due Hepatitis B (Wqrmegb-A-Iqtkh , Recombivax HB-Adult) 19yo and older 10/17/2010,05/23/2010,04/18/2010 [...] History Date Comments Bipolar affective disorder ( [facility] V24, [facility] V28) 06/27/2017 With [facility] Depression 11/26/2017 Esophageal reflux 08/14/2006 [...] for your loved ones. For example, child life therapist or elderly care for an older adult? [...] 8:45 AM EDT Office Visit Adult Medicine [address] [phone] Daisy Milian MD [address] [place], [place] Health Maintenance Due Date Last Done Comments Hepatitis A Vaccines (1 of 2 - Risk 2-dose series) 1991 Lung Cancer Screening (Low Dose CT) 07/27/2022 Pneumococcal Vaccine: 50+ Years (2 of 2 - PCV) 12/26/2022 12/26/2021 COVID-19 Vaccine ( season) 2025 08/26/2021, 01/31/2021, 01/03/2021 Influenza Vaccine (#1) 2025 2, 08/02/2021, 04/28/2020, Additional history exists Social Influencers [...] 03/29/2025, 10/13/2024 Depression Screening Completed 04/25/2025, 04/07/20 HIB Vaccines Aged Out No longer eligi [...] EDT Annual physical exam Vitamin D deficiency LIPID PANEL WITH REFLEX TO DIRECT LDL Routine 10/07/2024 8:38 AM EST Hypercholesteremia COLONOSCOPY Routine 07/08/2024 11:27 AM EST Colon cancer screening HEPATITIS C SCREENING Routine 04/08/2024 HIV SCREENING Routine 04/08/2024 DEPRESSION SCREENING Routine 04/07/2024 from Last 3 Months or Most Recently Relevant to Health Maintenance Results * (ABNORMAL) Vitamin D 25 hydroxy (04/25/2025 4:48 PM EDT) Pathologist [facility] [place] Vit D, 25-Hydroxy 25.9(L) 30.0 - 80.0 ng/mL LAB CHEMISTRY METHOD 04/25/2025 7:29 PM EDT [facility] Blood Venous blood specimen / Unknown Venipuncture / Unknown 04/25/2025 4:48 PM EDT 04/25/2025 4:48 PM EDT us [place] KAMARA LAB BLOOD ORDERABLES Final Re sult [facility] [address] [place] [address], [place] [phone] * (ABNORMAL) Complete blood count (04/25/2025 4:48 PM EDT) Pathologist [facility] [place] WBC 11.3(H) 4.8 - 10.8 K/mcL LAB HEMETOLOGY METHOD 04/25/2025 6:42 PM EDT [facility] RBC 5.10 4.50 - 5.50 M/mcL LAB HEMETOLOGY METHOD 04/25/2025 6:42 PM EDT [facility] Hemoglobin 16.1 13.5 - 17.5 g/dL LAB HEMETOLOGY METHOD 04/25/2025 6:42 PM EDT [facility] Hematocrit 49.2 42.0 - 54.0 % LAB HEMETOLOGY METHOD 04/25/2025 6:42 PM EDT [facility] MCV 97.2 79.0 - 98.0 FL LAB HEMETOLOGY METHOD 04/25/2025 6:42 PM EDT [facility] MCH 31.8 27.0 - 32.0 pcg LAB HEMETOLOGY METHOD 04/25/2025 6:42 PM EDT [facility] MCHC 32.7 32.0 - 37.0 g/dL LAB HEMETOLOGY METHOD 04/25/2025 6:42 PM EDT [facility] RDW 11.6 11.0 - 15.0 % LAB HEMETOLOGY METHOD 04/25/2025 6:42 PM EDT [facility] Platelets 299 130 - 400 K/mcL LAB HEMETOLOGY METHOD 04/25/2025 6:42 PM EDT [facility] MPV 10.5 7.0 - 11.0 FL LAB HEMETOLOGY METHOD 04/25/2025 6:42 PM EDT [facility] NRBC 0.0 <1.0 % LAB HEMETOLOGY METHOD 04/25/2025 6:42 PM EDT [facility] NRBC Absolute 0.00 <0.10 K/mcL LAB HEMETOLOGY METHOD 04/25/2025 6:42 PM EDT [facility] Blood Venous blood specimen / Unknown Venipuncture / Unknown 04/25/2025 4:48 PM EDT 04/25/2025 4:48 PM EDT us [place] KAMARA LAB BLOOD ORDERABLES Final Re sult [facility] [address] [place] [address], * Comprehensive metabolic panel (04/25/2025 4:48 PM EDT) Sodium 137 133 - 145 mmol/L LAB CHEMISTRY METHOD 04/25/2025 6:55 PM [facility] Potassium 4.5 3.5 - 5.5 mmol/L LAB CHEMISTRY METHOD 04/25/2025 6:55 PM [facility] Chloride 105 96 - 110 mmol/L LAB CHEMISTRY METHOD 04/25/2025 6:55 PM [facility] CO2 29 21 - 32 mmol/L LAB CHEMISTRY METHOD 04/25/2025 6:55 PM [facility] Anion Gap 3 3 - 11 LAB CHEMISTRY METHOD 04/25/2025 6:55 PM [facility] Glucose 86 70 - 100 mg/dL LAB CHEMISTRY METHOD 04/25/2025 6:55 PM [facility] BUN 15 5 - 25 mg/dL LAB CHEMISTRY METHOD 04/25/2025 6:55 PM [facility] Creatinine 0.96 0.70 - 1.30 mg/dL LAB CHEMISTRY METHOD 04/25/2025 6:55 PM [facility] eGFR 95 >=60 mL/min/1. 73m2 LAB CHEMISTRY METHOD 04/25/2025 6:55 PM [facility] Comment:Calculation based on the Chronic Kidney Disease Epidemiology Collaboration (CKD-EPI) equation refit without adjustment for race. BUN/Creatinine Ratio 15.6 LAB CHEMISTRY METHOD 04/25/2025 6:55 PM [facility] Calcium 9.5 8.5 - 10.5 mg/dL LAB CHEMISTRY METHOD 04/25/2025 6:55 PM [facility] AST (SGOT) 29 10 - 42 unit/L LAB CHEMISTRY METHOD 04/25/2025 6:55 PM [facility] ALT (SGPT) 43 10 - 60 unit/L LAB CHEMISTRY METHOD 04/25/2025 6:55 PM EDT [facility] Alkaline Phosphatase 106 42 - 121 unit/L LAB CHEMISTRY METHOD 04/25/2025 6:55 PM EDT [facility] Total Protein 7.5 6.0 - 8.0 g/dL LAB CHEMISTRY METHOD 04/25/2025 6:55 PM EDT [facility] Albumin 4.4 3.2 - 5.0 g/dL LAB CHEMISTRY METHOD 04/25/2025 6:55 PM EDT [facility] Total Bilirubin 0.6 0.0 - 1.4 mg/dL LAB CHEMISTRY METHOD 04/25/2025 6:55 PM EDT [facility] Blood Venous blood specimen / Unknown Venipuncture / Unknown 04/25/2025 4:48 PM EDT 04/25/2025 4:48 PM EDT us [place] KAMARA LAB BLOOD ORDERABLES Final Re sult [facility] [address] [place] [address], * Lipid panel with reflex to direct LDL (10/07/2024 8:38 AM EST) Cholesterol 147 0 - 200 mg/dL LAB CHEMISTRY METHOD 10/07/2024 10:[address] [facility] Triglycerides 105 0 - 150 mg/dL LAB CHEMISTRY METHOD 10/07/2024 10:[address] [facility] HDL 47 >=40 mg/dL LAB CHEMISTRY METHOD 10/07/2024 10:[address] [facility] LDL Calculated 79 0 - 100 mg/dL LAB CHEMISTRY METHOD 10/07/2024 10:[address] [facility] VLDL Cholesterol Diego 21 mg/dL LAB CHEMISTRY METHOD 10/07/2024 10:[address] [facility] Non HDL Chol. (LDL+VLDL) 100 <145 mg/dL LAB CHEMISTRY METHOD 10/07/2024 10:23 AM EST [facility] Chol/HDL Ratio 3.1 0.0 - 4.4 LAB CHEMISTRY METHOD 10/07/2024 10:23 AM EST [facility] Blood Venous blood specimen / Unknown Venipuncture / Unknown 10/07/2024 8:38 AM EST 10/07/2024 8:38 AM EST us Tonie KAMARA LAB BLOOD ORDERABLES Final Resul t [facility]) [facility] [address] [place] [address], * COLONOSCOPY Anesthesia - MAC; [facility] ENDOSCOPY (07/08/2024 11:27 AM EST) Anatomical Region Laterality Modality Endoscopy 07/08/2024 11:0 0 AM EST Impressions 07/08/2024 11:32 AM EST - One 3 mm polyp in the transverse colon, removed with a cold snare. Resected and retrieved. - Internal hemorrhoids. Recommendation: - Await pathology results. - Repeat colonoscopy in 5 years for surveillance. Narrative 07/08/2024 11:32 AM EST [facility] Patient Name: Maulik Harley [...] verified by the physician, the nurse, the director prison and the battery technician in the pre-procedure area in the [...] reduce spontaneously). Procedure Code(s): --- Professional --- 19288, Colonoscopy, flexible; with removal of tumor(s), polyp(s), or other lesion(s) by snare technique Diagnosis Code(s): --- Professional --- D12.3, Benign neoplasm of transverse colon (hepatic flexure or splenic flexure) CPT copyright 2020 [employer]. All rights reserved. The codes documented in this report are preliminary and upon cloth doubling machine operator review may be revised to meet current compliance requirements. Herb Bo MD 07/08/2024 11:32:15 AM This report has been signed electronically.Herb Bo MD Number of Addenda: 0 Note Initiated On: 07/08/2024 11:00 AM Scope Withdrawal Time: 0 hours 6 minutes 51 seconds Scope In: 11:05:37 AM Scope Out: 11:15:23 AM Endoscopy Department at [facility] - [address] [place] [id number] Procedure Note Herb Bo MD - 07/08/2024 [facility] GI Patient Name: Maulik Harley [...] the physician, the nurse, theanesthetist and the battery technician in the pre-procedure area in the [...] reduce spontaneously). Procedure Code(s): --- Professional --- 32475, Colonoscopy, flexible; with removal of tumor(s), polyp(s), or other lesion(s) by snare technique Diagnosis Code(s): --- Professional --- D12.3, Benign neoplasm of transverse colon (hepatic flexure or splenic flexure) CPT copyright 2020 [employer]. All rights reserved. The codes documented in this report are preliminary and upon cloth doubling machine operator reviewmay be revised to meet current compliance requirements. Herb Bo MD 07/08/2024 11:32:15 AM This report has been signed electronically.Herb Bo MD Number of Addenda: 0 Note Initiated On: 07/08/2024 11:00 AM Scope Withdrawal Time: 0 hours 6 minutes 51 seconds Scope In: 11:05:37 AM Scope Out: 11:15:23 AM Endoscopy Department at [facility] - [address] [place] [phone] IMPRESSION: - One 3 mm polyp in the transverse colon, removed with a cold snare. Resected and retrieved. - Internal hemorrhoids. Recommendation: - Await pathology results. - Repeat colonoscopy in 5 years for surveillance. us Herb Bo MD GI~PROCEDURE ORDERABLES Fin al Result * Hm HIV Screening (04/08/2024) HIV Screening abstracted Historical Provider HEALTH MAINTENANCE Final Result * Hepatitis C Screening (04/08/2024) Hepatitis C Screening abstracted Historical Provider HEALTH MAINTENANCE Final Result * Depression Screening (04/07/2024) Depression Screening abstracted Historical Provider HEALTH MAINTENANCE Final Result from Last 3 Months or Most Recently Relevant to Health Maintenance Insurance [facility] [employer] Care Teams Piccolo Mechanic Relationship Specialty Start Date End Date Daisy Milian MD [address] [place] [address] PCP - General Internal Medicine 06/28/21
--- OUTSIDE RECORDS SUMMARY | 2025-06-29 18:52 | XMS_ITS | Patient Health Record ---
Author Organization [facility] Address [address] [place] [address] Care Team Providers Care Electrical Assembly Technician Name Role Phone Mushtaq Vo Unavailable [phone] Reason For Referral No Information Plan Of Treatment No Information
== END 2025-06-29 16:26 | disposition home or self-care (01) ==
PROVIDERS: PCP Internal Medicine; Visit Provider Internal Medicine
DX: G47.33 Obstructive sleep apnea (adult) (pediatric) (principal); J44.9 Chronic obstructive pulmonary disease, unspecified; F17.210 Nicotine dependence, cigarettes, uncomplicated; E66.9 Obesity, unspecified
CPT/HCPCS: 99213

== ENCOUNTER → 2025-06-29 15:54 | Outpatient (BNVA) | payer OTHER, SELFPAY | PROVIDERS: PCP Internal Medicine; Visit Provider Internal Medicine | DX: G47.33 Obstructive sleep apnea (adult) (pediatric) (principal); Z99.89 Dependence on other enabling machines and devices; J44.9 Chronic obstructive pulmonary disease, unspecified; F17.210 Nicotine dependence, cigarettes, uncomplicated; E66.9 Obesity, unspecified | CPT/HCPCS: 99212 ==